=== PATIENT | female | born 1935 | race American Indian/Alaskan Native ===

== ENCOUNTER 2019-08-09 21:13 | Emergency (ER) | payer MEDICARE ==
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
[2019-08-09 22:10] LABS: Basophils % (Auto) 0.6 % (0.0-1.8); Eosinophils # (Auto) 0.1 K/mm3 (0.0-0.4); Eosinophils % (Auto) 3.2 % (0.0-4.3); Hematocrit 33.4 % (30.3-42.9); Hemoglobin 10.5 gm/dl (10.1-14.3); Lymphocytes # (Auto) 1.5 K/mm3 (1.2-5.4); Lymphocytes % (Auto) 31.9 % (13.4-35.0); Mean Corpuscular HGB Conc 31 % (30-34); Mean Corpuscular Volume 86 fl (79-97); Monocytes # (Auto) 0.5 K/mm3 (0.0-0.8); Monocytes % (Auto) 11.6 % (0.0-7.3); Platelet Count 185 K/mm3 (140-440); Red Blood Count 3.89 M/mm3 (3.65-5.03); Red Cell Distribution Width 15.4 % (13.2-15.2)
[2019-08-09 22:23] LABS: Alanine Aminotransferase 14 units/L (7-56); Albumin 4.1 g/dL (3.9-5)
[2019-08-09 22:24] LABS: Bilirubin,Direct < 0.2 mg/dL (0-0.2)
[2019-08-09 22:28] LABS: Calcium 9.4 mg/dL (8.4-10.2)
[2019-08-09 22:58] LABS: Bilirubin,Urine NEG (Negative); Blood,Urine NEG (Negative); Color,Urine Yellow (Yellow); Mucus,Urine FEW /HPF; Protein,Urine <15 mg/dL mg/dL (Negative); Urobilinogen,Urine < 2.0 mg/dL (<2.0)
[2019-08-09 23:06] LABS: Amphetamine Screen,Urine PRESUMPTIVE NEGATIVE; Benzodiazepines Screen,Urine PRESUMPTIVE NEGATIVE; Cannabinoid Screen,Urine PRESUMPTIVE NEGATIVE; Cocaine Screen,Urine PRESUMPTIVE NEGATIVE; Methadone Screen,Urine PRESUMPTIVE NEGATIVE; Opiate Screen,Urine PRESUMPTIVE NEGATIVE
[2019-08-10] MEDS ORDERED: HALOPERIDOL LACTATE 5 MG/1 ML INJ IM ONE (09:33)
[2019-08-10 12:52] VITALS: BP 142/92
== END 2019-08-10 12:51 ==
LOC: ED 21:13
DX: F28 Other psychotic disorder not due to a substance or known physiological condition (principal); F03.90 Unspecified dementia, unspecified severity, without behavioral disturbance, psychotic disturbance, mood disturbance, and anxiety
CPT/HCPCS: 36415; 80048; 80076; 80307; 81001; 85025; 96372; 99284; J1630; 80320; G0480

== ENCOUNTER 2019-08-10 10:51 | Inpatient (IN) | payer MEDICARE ==
[2019-08-10] MEDS ORDERED: ZIPRASIDONE MESYLATE 20 MG VIAL IM PRN (11:12)
--- NOTE | 2019-08-11 07:33 | Progress Note ---
Subjective Date of service: 08/11/19 Principal diagnosis: Dementia with Behavioral Disturbance Subjective Comment: I reviewed the patient's medical record and the patient's progress was discussed with the nursing staff. Georges Blake is an 83y/o female patient who was brought to the ER by her family for agitation and physical aggression toward others, according to the chart. During my interview this morning, the patient is lying in bed. She is dressed appropriately. She is awake. She is confused. The patient is a poor historian and unable to give any details about her history or much information about what's going on with her at present. She says she "doesn't feel so good" when asked. She says "my mother took me this morning to the hospital." When asked about thoughts of self-harm or not wanting to live, the patient replied, "no, I don't want to . I love my mother." PAST PSYCHIATRIC HISTORY: Unable to obtain information PAST MEDICAL HISTORY: Unable to obtain Family Psychiatric History: None reported or documented SOCIAL HISTORY Unable to obtain REVIEW OF SYSTEMS Unable to obtain MENTAL STATUS EXAMINATION General Appearance: Dressed appropriately Behavior: Calm, cooperative. Mood: "doesn't feel so good" Affect: Congruent with stated mood Speech: Normal tone and pace Thought Process: Impaired Thought Content: Suicidal Ideation: Denies Homicidal Ideation: Hallucinations: Delusions: None elicited Insight and Judgment: Limited Memory/Cognition: Impaired Assessment Dementia with Behavioral Disturbance Treatment Plan Patient will be admitted for inpatient psychiatric evaluation, medication adjustment and close monitoring The patient's behavior, mood, sleep and appetite will be closely monitored. Patient will be enrolled in individual and group therapeutic sessions and encouraged to attend. Patient will be provided with a safe and structured environment. Patient's physical health needs will be addressed by the Hospitalist. Hospitalist Consulted Labs including CBC, CMP, Lipid profile and Hemoglobin A1C ordered Social Assessment will be completed and the Load Tester will work with patient and family to ensure a suitable and safe disposition Medication adjustment will be made as clinically indicated Usual Wellness Orthodox/Preservation: [place] 3/fatty acids 2000mg po BID Risperidone 0.25mg po BID Trazodone 50mg po qhs Geodon 10mg IM q6h prn agitation - Certification Statement This is an acknowledgement statement that Georges Blake is an 83y/o female who requires inpatient psychiatric admission for treatment which could reasonably be expected to improve the patient's condition for Dementia with Behavioral Disturbance. Estimated period of time patient will need to remain in the hospital: [7] Plan for post-hospital care: [Outpatient] Medications and Allergies Allergies Allergy/AdvReac Type Severity Reaction Status Date / Time No Known Allergies Allergy Unverified 08/10/19 04:52 Home Medications Medication Instructions Recorded Confirmed Last Taken Type No Known Home Medications [No 08/11/19 08/11/19 Unknown History Reported Home Medications] Active Meds: Active Medications Trazodone HCl (Desyrel) 50 mg PO QHS JACQUELYN Ziprasidone (Geodon) 10 mg IM Q6H PRN PRN Reason: Agitation Results - Results Labs/Vitals: Laboratory Last Values POC Glucose 87 (70-105) 08/10/19 13:54 Last Vital Signs Temp 98.4 F 08/10/19 13:36 Pulse 87 08/10/19 13:36 Resp 20 08/10/19 13:36 BP 146/78 08/10/19 13:36 Pulse Ox 100 08/10/19 13:36
--- NOTE | 2019-08-11 08:34 | History and Physical Report ---
GP History & Physical - History of Present Illness Date of admission: 08/10/19 Date of Examination: 08/11/19 Reason for Admission: Danger to others, Unable to care for self History of Present Illness: I reviewed the patient's medical record and the patient's progress was discussed with the nursing staff. Jt Soria is an 83y/o female patient who was brought to the ER by her family for agitation and physical aggression toward others, according to the chart. During my interview this morning, the patient is lying in bed. She is dressed appropriately. She is awake. She is confused. The patient is a poor historian and unable to give any details about her history or much information about what's going on with her at present. She says she "doesn't feel so good" when asked. She says "my mother took me this morning to the hospital." When asked about thoughts of self-harm or not wanting to live, the patient replied, "no, I don't want to . I love my mother." PAST PSYCHIATRIC HISTORY: Unable to obtain information PAST MEDICAL HISTORY: Unable to obtain Family Psychiatric History: None reported or documented SOCIAL HISTORY Unable to obtain REVIEW OF SYSTEMS Unable to obtain MENTAL STATUS EXAMINATION General Appearance: Dressed appropriately Behavior: Calm, cooperative. Mood: "doesn't feel so good" Affect: Congruent with stated mood Speech: Normal tone and pace Thought Process: Impaired Thought Content: Suicidal Ideation: Denies Homicidal Ideation: Hallucinations: Delusions: None elicited Insight and Judgment: Limited Memory/Cognition: Impaired Assessment Dementia with Behavioral Disturbance Treatment Plan Patient will be admitted for inpatient psychiatric evaluation, medication adjustment and close monitoring The patient's behavior, mood, sleep and appetite will be closely monitored. Patient will be enrolled in individual and group therapeutic sessions and encouraged to attend. Patient will be provided with a safe and structured environment. Patient's physical health needs will be addressed by the Hospitalist. Hospitalist Consulted Labs including CBC, CMP, Lipid profile and Hemoglobin A1C ordered Social Assessment will be completed and the Boat Rental Clerk will work with patient and family to ensure a suitable and safe disposition Medication adjustment will be made as clinically indicated Usual Wellness Methodist/Preservation: [place] 3/fatty acids 2000mg po BID Risperidone 0.25mg po BID Trazodone 50mg po qhs Geodon 10mg IM q6h prn agitation - Certification Statement This is an acknowledgement statement that Jt Soria is an 83y/o female who requires inpatient psychiatric admission for treatment which could reasonably be expected to improve the patient's condition for Dementia with Behavioral Dis turbance. Estimated period of time patient will need to remain in the hospital: [7] Plan for post-hospital care: [Outpatient] Legal Status: Voluntary Reaction to Hospitalization: Accepting Medications and Allergies Allergies Allergy/AdvReac Type Severity Reaction Status Date / Time No Known Allergies Allergy Unverified 08/10/19 04:52 Home Medications Medication Instructions Recorded Confirmed Last Taken Type No Known Home Medications [No 08/11/19 08/11/19 Unknown History Reported Home Medications] Active Meds: Active Medications Fish Oil (Fish Oil) 2,000 mg PO BID JACQUELYN Risperidone (Risperdal) 0.25 mg PO BID JACQUELYN Trazodone HCl (Desyrel) 50 mg PO QHS JACQUELYN Ziprasidone (Geodon) 10 mg IM Q6H PRN PRN Reason: Agitation Results - Results Labs/Vitals: Laboratory Last Values POC Glucose 87 (70-105) 08/10/19 13:54 Last Vital Signs Temp 98.4 F 08/10/19 13:36 Pulse 87 08/10/19 13:36 Resp 20 08/10/19 13:36 BP 146/78 08/10/19 13:36 Pulse Ox 100 08/10/19 13:36 Physical Examination - Constitutional Vitals: Vital Signs Temp Pulse Resp BP Pulse Ox 98.4 F 87 20 146/78 100 08/10/19 13:36 08/10/19 13:36 08/10/19 13:36 08/10/19 13:36 08/10/19 13:36 Temperature -Last 24 Hours Temperature 98.4 F Mental Status Exam - Vital signs Last Vital Signs Temp 98.4 F 08/10/19 13:36 Pulse 87 08/10/19 13:36 Resp 20 08/10/19 13:36 BP 146/78 08/10/19 13:36 Pulse Ox 100 08/10/19 13:36 Physician Certification - Certification Statement Physician Certification Statement: This is an acknowledgement statement that JT SORIA is a 83 year old F who requires inpatient psychiatric admission for treatment which could reasonably be expected to improve the patient's condition for Estimated period of time patient will need to remain in the hospital: [ ] Plan for post-hospital care: [ ]
[2019-08-11] MEDS: risperiDONE 0.25 MG TAB PO SCH ×3 (10:10→21:49)
[2019-08-11] MEDS: OMEGA-3 FATTY ACIDS/FISH OIL 1 GRAM CAP PO SCH ×3 (10:10→21:48)
[2019-08-11] MEDS ORDERED: WATER FOR INJ Sterile (PF) 10 ML ONE (13:10)
[2019-08-11 13:58] LABS: Basophils % (Auto) 0.6 % (0.0-1.8); Eosinophils # (Auto) 0.2 K/mm3 (0.0-0.4); Eosinophils % (Auto) 2.8 % (0.0-4.3); Hematocrit 36.8 % (30.3-42.9); Hemoglobin 11.6 gm/dl (10.1-14.3); Lymphocytes # (Auto) 1.6 K/mm3 (1.2-5.4); Lymphocytes % (Auto) 29.9 % (13.4-35.0); Mean Corpuscular HGB Conc 32 % (30-34); Mean Corpuscular Volume 86 fl (79-97); Monocytes # (Auto) 0.4 K/mm3 (0.0-0.8); Monocytes % (Auto) 7.6 % (0.0-7.3); Platelet Count 222 K/mm3 (140-440); Red Blood Count 4.31 M/mm3 (3.65-5.03); Red Cell Distribution Width 15.4 % (13.2-15.2)
[2019-08-11 14:03] LABS: Albumin 4.2 g/dL (3.9-5); Calcium 9.7 mg/dL (8.4-10.2); Chol/HDL Ratio 2.56 %
--- NOTE | 2019-08-11 20:21 | Consultation ---
History of Present Illness - Reason for Consult Consult date: 08/11/19 Medical management Requesting physician: JOYCE AMBROSE - History of Present Illness Georges Blake is an 83y/o female patient who was brought to the ER by her family for agitation and physical aggression toward others, according to the chart. D She is dressed appropriately. She is awake. She is confused. The patient is a poor historian and unable to give any details about her history or much in formation about what's going on with her at present. She says she "doesn't feel so good" when asked. She says "my mother took me this morning to the hospital." When asked about thoughts of self-harm or not wanting to live, the patient replied, "no, I don't want to . I love my mother." Past History Past Medical History: CAD (On Plavix which she is not taking), hyperlipidemia Past Surgical History: Other (Could not obtain) Social history: other (Could not obtain) Family history: hypertension Medications and Allergies Allergies Allergy/AdvReac Type Severity Reaction Status Date / Time No Known Allergies Allergy Unverified 08/10/19 04:52 Home Medications Medication Instructions Recorded Confirmed Last Taken Type Atorvastatin 80 mg PO QHS 08/11/19 08/11/19 2 Days Ago History ~08/09/19 80 mg Centrum Silver Women Tablet 1 tab PO QAM 08/11/19 08/11/19 2 Days Ago History ~08/09/19 1 Clopidogrel 08/11/19 3 Months Ago History ~05/13/19 Sprycel 50 mg PO QAM 08/11/19 08/11/19 2 Days Ago History ~08/09/19 50 mg levETIRAcetam 500 mg PO QDAY 08/11/19 08/11/19 01/01/19 History 500 mg Active Meds: Active Medications Fish Oil (Fish Oil) 2,000 mg PO BID [facility] Last Admin: 08/11/19 12:38 Dose: Not Given Documented by: Risperidone (Risperdal) 0.25 mg PO BID JACQUELYN Last Admin: 08/11/19 12:39 Dose: Not Given Documented by: Trazodone HCl (Desyrel) 50 mg PO QHS JACQUELYN Ziprasidone (Geodon) 10 mg IM Q6H PRN PRN Reason: Agitation Last Admin: 08/11/19 13:25 Dose: 10 mg Documented by: Review of Systems All systems: negative Exam - Constitutional Vitals: Temp Pulse Resp BP Pulse Ox 98.2 F 88 18 106/70 98 08/10/19 20:20 08/10/19 20:20 08/10/19 20:20 08/10/19 20:20 08/10/19 20:20 General appearance: Present: no acute distress, well-nourished - EENT Eyes: Present: PERRL ENT: hearing intact, clear oral mucosa - Neck Neck: Present: supple, normal ROM - Respiratory Respiratory effort: normal Respiratory: bilateral: CTA - Cardiovascular Heart rate: 78 Rhythm: regular Heart Sounds: Present: S1 & S2. Absent: rub, click - Extremities Extremities: no ischemia, pulses intact, pulses symmetrical, No edema Peripheral Pulses: within normal limits - Abdominal General gastrointestinal: Present: soft, non-tender, non-distended, normal bowel sounds Female genitourinary: Present: normal - Rectal Rectal Exam: deferred - Integumentary Integumentary: Present: clear, warm, dry - Musculoskeletal Musculoskeletal: gait normal, strength equal bilaterally - Psychiatric Psychiatric: appropriate mood/affect, intact judgment & insight - Neurologic Neurologic: CNII-XII intact, moves all extremities - Allied Health Allied health notes reviewed: nursing, case management Results - Labs CBC & Chem 7: 08/11/19 13:17 08/11/19 13:17 Labs: Abnormal lab results 08/11/19 08/11/19 Range/Units 13:17 13:17 MCH 27 L (28-32) pg RDW 15.4 H (13.2-15.2) % [place] % (Auto) 7.6 H (0.0-7.3) % BUN 30 H (7-17) mg/dL Creatinine 1.6 H (0.7-1.2) mg/dL Glucose 107 H (65-100) mg/dL AST 53 H (5-40) units/L Cholesterol 226 H (50-199) mg/dL LDL Cholesterol Direct 135 H (50-130) mg/dL HDL Cholesterol 88 H (40-59) mg/dL Short CBC 08/11/19 Range/Units 13:17 WBC 5.4 (4.5-11.0) K/mm3 Hgb 11.6 (10.1-14.3) gm/dl Hct 36.8 (30.3-42.9) % Plt Count 222 (140-440) K/mm3 BMP 08/11/19 13:17 Sodium 144 Potassium 4.6 Chloride 104.5 Carbon Dioxide 27 BUN 30 H Creatinine 1.6 H Glucose 107 H Calcium 9.7 Liver Function 08/11/19 Range/Units 13:17 Total Bilirubin 0.20 (0.1-1.2) mg/dL AST 53 H (5-40) units/L ALT 18 (7-56) units/L Alkaline Phosphatase 102 (35-129) units/L Albumin 4.2 (3.9-5) g/dL Assessment and Plan - Patient Problems (1) Dementia with psychosis Current Visit: No Status: Acute Plan to address problem: Defer to psychiatry (2) CARMEN (acute kidney injury) Current Visit: Yes Status: Acute Plan to address problem: Increased oral fluid intake by mouth (3) Hyperlipidemia Current Visit: Yes Status: Chronic Qualifiers: Hyperlipidemia type: mixed hyperlipidemia Qualified Code(s): E78.2 - Mixed hyperlipidemia Plan to address problem: Continue statins (4) DVT prophylaxis Current Visit: Yes Status: Acute Plan to address problem: Lovenox 40 mg subcu daily
[2019-08-11] MEDS: traZODone 50 MG TAB PO SCH (21:48)
[2019-08-11] MEDS: ENOXAPARIN 30 MG/0.3 ML INJ SUB-Q SCH (21:49)
[2019-08-11] MEDS ORDERED: ENOXAPARIN 40 MG/0.4 ML INJ SUB-Q SCH (22:00)
--- NOTE | 2019-08-12 08:32 | Progress Note ---
Subjective Date of service: 08/12/19 Principal diagnosis: Dementia with Behavioral Disturbance Subjective Comment: I reviewed the patient's medical record and the patient's progress was discussed with the nursing staff. During my interview with the patient this morning, she is lying in bed. Awake. Her speech is low and barely audible. She is confused, and unable to give any detailed insight. She is calm. When asked how she was feeling, she says "I'm hurting." When asking about thoughts of self harm, the patient replied, "I have to get up." She asks "is my mother here." PAST PSYCHIATRIC HISTORY: Unable to obtain information PAST MEDICAL HISTORY: Unable to obtain Family Psychiatric History: None reported or documented SOCIAL HISTORY Unable to obtain REVIEW OF SYSTEMS Unable to obtain MENTAL STATUS EXAMINATION Unable to adequately obtain due to the patient's confusion Assessment Dementia with Behavioral Disturbance Treatment Plan Patient will be admitted for inpatient psychiatric evaluation, medication adjustment and close monitoring The patient's behavior, mood, sleep and appetite will be closely monitored. Patient will be enrolled in individual and group therapeutic sessions and encouraged to attend. Patient will be provided with a safe and structured environment. Patient's physical health needs will be addressed by the Hospitalist. Hospitalist Consulted Labs including CBC, CMP, Lipid profile and Hemoglobin A1C ordered Social Assessment will be completed and the Appeals Nurse will work with patient and family to ensure a suitable and safe disposition Medication adjustment will be made as clinically indicated Usual Wellness Protestant/Preservation: No changes made today Estimated period of time patient will need to remain in the hospital: [5] Plan for post-hospital care: [Outpatient] Medications and Allergies Allergies Allergy/AdvReac Type Severity Reaction Status Date / Time No Known Allergies Allergy Unverified 08/10/19 04:52 Home Medications Medication Instructions Recorded Confirmed Last Taken Type Atorvastatin 80 mg PO QHS 08/11/19 08/11/19 2 Days Ago History ~08/09/19 80 mg Centrum Silver Women Tablet 1 tab PO QAM 08/11/19 08/11/19 2 Days Ago History ~08/09/19 1 Clopidogrel 08/11/19 3 Months Ago History ~05/13/19 Sprycel 50 mg PO QAM 08/11/19 08/11/19 2 Days Ago History ~08/09/19 50 mg levETIRAcetam 500 mg PO QDAY 08/11/19 08/11/19 01/01/19 History 500 mg Active Meds: Active Medications Enoxaparin Sodium (Enoxaparin) 30 mg SUB-Q QDAY@2200 [facility] Last Admin: 08/11/19 21:49 Dose: Not Given Documented by: Fish Oil (Fish Oil) 2,000 mg PO BID [facility] Last Admin: 08/11/19 21:48 Dose: 2,000 mg Documented by: Risperidone (Risperdal) 0.25 mg PO BID [facility] Last Admin: 08/11/19 21:49 Dose: 0.25 mg Documented by: Trazodone HCl (Desyrel) 50 mg PO QHS [facility] Last Admin: 08/11/19 21:48 Dose: 50 mg Documented by: Ziprasidone (Geodon) 10 mg IM Q6H PRN PRN Reason: Agitation Last Admin: 08/11/19 13:25 Dose: 10 mg Documented by: Results - Results Labs/Vitals: Laboratory Last Values WBC 5.4 K/mm3 (4.5-11.0) 08/11/19 13:17 RBC 4.31 M/mm3 (3.65-5.03) 08/11/19 13:17 Hgb 11.6 gm/dl (10.1-14.3) 08/11/19 13:17 Hct 36.8 % (30.3-42.9) 08/11/19 13:17 MCV 86 fl (79-97) 08/11/19 13:17 MCH 27 pg (28-32) L 08/11/19 13:17 MCHC 32 % (30-34) 08/11/19 13:17 RDW 15.4 % (13.2-15.2) H 08/11/19 13:17 Plt Count 222 K/mm3 (140-440) 08/11/19 13:17 Lymph % (Auto) 29.9 % (13.4-35.0) 08/11/19 13:17 [place] % (Auto) 7.6 % (0.0-7.3) H 08/11/19 13:17 Eos % (Auto) 2.8 % (0.0-4.3) 08/11/19 13:17 Baso % (Auto) 0.6 % (0.0-1.8) 08/11/19 13:17 Lymph # 1.6 K/mm3 (1.2-5.4) 08/11/19 13:17 [place] # 0.4 K/mm3 (0.0-0.8) 08/11/19 13:17 Eos # 0.2 K/mm3 (0.0-0.4) 08/11/19 13:17 Baso # 0.0 K/mm3 (0.0-0.1) 08/11/19 13:17 Seg Neutrophils % 59.1 % (40.0-70.0) 08/11/19 13:17 Seg Neutrophils # 3.2 K/mm3 (1.8-7.7) 08/11/19 13:17 Sodium 144 mmol/L (137-145) 08/11/19 13:17 Potassium 4.6 mmol/L (3.6-5.0) 08/11/19 13:17 Chloride 104.5 mmol/L (98-107) 08/11/19 13:17 Carbon Dioxide 27 mmol/L (22-30) 08/11/19 13:17 Anion Gap 17 mmol/L 08/11/19 13:17 BUN 30 mg/dL (7-17) H 08/11/19 13:17 Creatinine 1.6 mg/dL (0.7-1.2) H 08/11/19 13:17 Estimated GFR 37 ml/min 08/11/19 13:17 BUN/Creatinine Ratio 19 % 08/11/19 13:17 Glucose 107 mg/dL (65-100) H 08/11/19 13:17 POC Glucose 87 (70-105) 08/10/19 13:54 Hemoglobin A1c 4.7 % (4-6) 08/11/19 13:17 Calcium 9.7 mg/dL (8.4-10.2) 08/11/19 13:17 Total Bilirubin 0.20 mg/dL (0.1-1.2) 08/11/19 13:17 AST 53 units/L (5-40) H 08/11/19 13:17 ALT 18 units/L (7-56) 08/11/19 13:17 Alkaline Phosphatase 102 units/L (35-129) 08/11/19 13:17 Total Protein 7.7 g/dL (6.3-8.2) 08/11/19 13:17 Albumin 4.2 g/dL (3.9-5) 08/11/19 13:17 Albumin/Globulin Ratio 1.2 % 08/11/19 13:17 Triglycerides 60 mg/dL (2-149) 08/11/19 13:17 Cholesterol 226 mg/dL (50-199) H 08/11/19 13:17 LDL Cholesterol Direct 135 mg/dL (50-130) H 08/11/19 13:17 HDL Cholesterol 88 mg/dL (40-59) H 08/11/19 13:17 Cholesterol/HDL Ratio 2.56 % 08/11/19 13:17 TSH 2.150 mlU/mL (0.270-4.200) 08/11/19 13:17 Coronavirus (PCR) Negative (Negative) 08/10/19 Unknown Last Vital Signs Temp 98.0 F 08/11/19 22:00 Pulse 76 08/11/19 22:00 Resp 16 08/11/19 22:00 BP 142/60 08/11/19 22:00 Pulse Ox 100 08/11/19 22:00
[2019-08-12] MEDS: OMEGA-3 FATTY ACIDS/FISH OIL 1 GRAM CAP PO SCH ×2 (12:43→21:33)
[2019-08-12] MEDS: risperiDONE 0.25 MG TAB PO SCH ×2 (12:44→21:33)
[2019-08-12] MEDS: traZODone 50 MG TAB PO SCH (21:33)
[2019-08-12] MEDS: ENOXAPARIN 30 MG/0.3 ML INJ SUB-Q SCH (21:34)
--- NOTE | 2019-08-13 09:15 | Progress Note ---
Subjective Date of service: 08/13/19 Principal diagnosis: Dementia with Behavioral Disturbance Subjective Comment: I reviewed the patient's medical record and the patient's progress was discussed with the nursing staff. The nurse note states the patient referred to two ruben bears in her room as her sons, stated that she will be calm so that nobody will take away her sons from her. The nurse note also states the patient refuses her medications and at times agitated. During my interview with the patient this morning, she is sitting in the dayroom. She is dressed appropriately. Her speech is low and barely audible. She is confused, and states to me "I'm eating with my children." She then asked me "have you seen them." Reason for continued inpatient treatment: The patient is agitated at times, and at times with episodes of delusions. She is also not medication complaint. REVIEW OF SYSTEMS Unable to obtain MENTAL STATUS EXAMINATION Unable to adequately obtain due to the patient's confusion Assessment Dementia with Behavioral Disturbance Treatment Plan Patient will be admitted for inpatient psychiatric evaluation, medication adjustment and close monitoring The patient's behavior, mood, sleep and appetite will be closely monitored. Patient will be enrolled in individual and group therapeutic sessions and encouraged to attend. Patient will be provided with a safe and structured environment. Patient's physical health needs will be addressed by the Hospitalist. Hospitalist Consulted Labs including CBC, CMP, Lipid profile and Hemoglobin A1C ordered Social Assessment will be completed and the Shoe Repairer will work with patient and family to ensure a suitable and safe disposition Medication adjustment will be made as clinically indicated Usual Wellness Mandaen/Preservation: Increased Risperidone to 0.5mg po BID Estimated period of time patient will need to remain in the hospital: [5] Plan for post-hospital care: [Outpatient] Medications and Allergies Allergies Allergy/AdvReac Type Severity Reaction Status Date / Time No Known Allergies Allergy Unverified 08/10/19 04:52 Home Medications Medication Instructions Recorded Confirmed Last Taken Type Atorvastatin 80 mg PO QHS 08/11/19 08/11/19 2 Days Ago History ~08/09/19 80 mg Centrum Silver Women Tablet 1 tab PO QAM 08/11/19 08/11/19 2 Days Ago History ~08/09/19 1 Clopidogrel 75 mg PO DAILY 08/11/19 08/13/19 Unknown History Sprycel 50 mg PO QAM 08/11/19 08/11/19 2 Days Ago History ~08/09/19 50 mg levETIRAcetam 500 mg PO QDAY 08/11/19 08/11/19 01/01/19 History 500 mg Active Meds: Active Medications Enoxaparin Sodium (Enoxaparin) 30 mg SUB-Q QDAY@2200 [facility] Last Admin: 08/12/19 21:34 Dose: 30 mg Documented by: Fish Oil (Fish Oil) 2,000 mg PO BID [facility] Last Admin: 08/12/19 21:33 Dose: 2,000 mg Documented by: Risperidone (Risperdal) 0.25 mg PO BID [facility] Last Admin: 08/12/19 21:33 Dose: 0.25 mg Documented by: Trazodone HCl (Desyrel) 50 mg PO QHS [facility] Last Admin: 08/12/19 21:33 Dose: 50 mg Documented by: Ziprasidone (Geodon) 10 mg IM Q6H PRN PRN Reason: Agitation Last Admin: 08/11/19 13:25 Dose: 10 mg Documented by: Results - Results Labs/Vitals: Laboratory Last Values WBC 5.4 K/mm3 (4.5-11.0) 08/11/19 13:17 RBC 4.31 M/mm3 (3.65-5.03) 08/11/19 13:17 Hgb 11.6 gm/dl (10.1-14.3) 08/11/19 13:17 Hct 36.8 % (30.3-42.9) 08/11/19 13:17 MCV 86 fl (79-97) 08/11/19 13:17 MCH 27 pg (28-32) L 08/11/19 13:17 MCHC 32 % (30-34) 08/11/19 13:17 RDW 15.4 % (13.2-15.2) H 08/11/19 13:17 Plt Count 222 K/mm3 (140-440) 08/11/19 13:17 Lymph % (Auto) 29.9 % (13.4-35.0) 08/11/19 13:17 [place] % (Auto) 7.6 % (0.0-7.3) H 08/11/19 13:17 Eos % (Auto) 2.8 % (0.0-4.3) 08/11/19 13:17 Baso % (Auto) 0.6 % (0.0-1.8) 08/11/19 13:17 Lymph # 1.6 K/mm3 (1.2-5.4) 08/11/19 13:17 [place] # 0.4 K/mm3 (0.0-0.8) 08/11/19 13:17 Eos # 0.2 K/mm3 (0.0-0.4) 08/11/19 13:17 Baso # 0.0 K/mm3 (0.0-0.1) 08/11/19 13:17 Seg Neutrophils % 59.1 % (40.0-70.0) 08/11/19 13:17 Seg Neutrophils # 3.2 K/mm3 (1.8-7.7) 08/11/19 13:17 Sodium 144 mmol/L (137-145) 08/11/19 13:17 Potassium 4.6 mmol/L (3.6-5.0) 08/11/19 13:17 Chloride 104.5 mmol/L (98-107) 08/11/19 13:17 Carbon Dioxide 27 mmol/L (22-30) 08/11/19 13:17 Anion Gap 17 mmol/L 08/11/19 13:17 BUN 30 mg/dL (7-17) H 08/11/19 13:17 Creatinine 1.6 mg/dL (0.7-1.2) H 08/11/19 13:17 Estimated GFR 37 ml/min 08/11/19 13:17 BUN/Creatinine Ratio 19 % 08/11/19 13:17 Glucose 107 mg/dL (65-100) H 08/11/19 13:17 POC Glucose 87 (70-105) 08/10/19 13:54 Hemoglobin A1c 4.7 % (4-6) 08/11/19 13:17 Calcium 9.7 mg/dL (8.4-10.2) 08/11/19 13:17 Total Bilirubin 0.20 mg/dL (0.1-1.2) 08/11/19 13:17 AST 53 units/L (5-40) H 08/11/19 13:17 ALT 18 units/L (7-56) 08/11/19 13:17 Alkaline Phosphatase 102 units/L (35-129) 08/11/19 13:17 Total Protein 7.7 g/dL (6.3-8.2) 08/11/19 13:17 Albumin 4.2 g/dL (3.9-5) 08/11/19 13:17 Albumin/Globulin Ratio 1.2 % 08/11/19 13:17 Triglycerides 60 mg/dL (2-149) 08/11/19 13:17 Cholesterol 226 mg/dL (50-199) H 08/11/19 13:17 LDL Cholesterol Direct 135 mg/dL (50-130) H 08/11/19 13:17 HDL Cholesterol 88 mg/dL (40-59) H 08/11/19 13:17 Cholesterol/HDL Ratio 2.56 % 08/11/19 13:17 TSH 2.150 mlU/mL (0.270-4.200) 08/11/19 13:17 Coronavirus (PCR) Negative (Negative) 08/10/19 Unknown Last Vital Signs Temp 97.4 F L 08/13/19 07:52 Pulse 80 08/13/19 07:52 Resp 18 08/13/19 07:52 BP 138/76 08/13/19 07:52 Pulse Ox 99 08/13/19 07:52
[2019-08-13] MEDS: risperiDONE 0.25 MG TAB PO SCH ×2 (10:48→22:06)
[2019-08-13] MEDS: OMEGA-3 FATTY ACIDS/FISH OIL 1 GRAM CAP PO SCH ×2 (10:48→22:20)
[2019-08-13] MEDS: traZODone 50 MG TAB PO SCH (22:05)
[2019-08-13] MEDS: ENOXAPARIN 30 MG/0.3 ML INJ SUB-Q SCH (22:05)
--- NOTE | 2019-08-14 07:41 | Progress Note ---
Subjective Date of service: 08/14/19 Principal diagnosis: Dementia with Behavioral Disturbance Subjective Comment: I reviewed the patient's medical record and the patient's progress was discussed with the nursing staff. During my interview with the patient this morning, she is awake and confused. She is dressed appropriately. She makes fair eye contact. The patient greets me with "good morning." She then says "I'm getting up fast." She starts pointing down the hallway and then opens both of her hands as if she thinks something is on them. Reason for continued inpatient treatment: The patient is agitated at times, and has episodes of hallucinations. She is also not medication compliant. REVIEW OF SYSTEMS Unable to obtain MENTAL STATUS EXAMINATION Unable to adequately obtain due to the patient's confusion Assessment Dementia with Behavioral Disturbance Treatment Plan Patient will be admitted for inpatient psychiatric evaluation, medication adjustment and close monitoring The patient's behavior, mood, sleep and appetite will be closely monitored. Patient will be enrolled in individual and group therapeutic sessions and encouraged to attend. Patient will be provided with a safe and structured environment. Patient's physical health needs will be addressed by the Hospitalist. Hospitalist Consulted Labs including CBC, CMP, Lipid profile and Hemoglobin A1C ordered Social Assessment will be completed and the Rn Complex Care will work with patient and family to ensure a suitable and safe disposition Medication adjustment will be made as clinically indicated Usual Wellness Uatsdin/Preservation: Increased Risperidone to 0.5mg po BID yesterday No changes made today Estimated period of time patient will need to remain in the hospital: [4] Plan for post-hospital care: [Outpatient] Medications and Allergies Allergies Allergy/AdvReac Type Severity Reaction Status Date / Time No Known Allergies Allergy Unverified 08/10/19 04:52 Home Medications Medication Instructions Recorded Confirmed Last Taken Type Atorvastatin 80 mg PO QHS 08/11/19 08/11/19 2 Days Ago History ~08/09/19 80 mg Centrum Silver Women Tablet 1 tab PO QAM 08/11/19 08/11/19 2 Days Ago History ~08/09/19 1 Clopidogrel 75 mg PO DAILY 08/11/19 08/13/19 Unknown History Sprycel 50 mg PO QAM 08/11/19 08/11/19 2 Days Ago History ~08/09/19 50 mg levETIRAcetam 500 mg PO QDAY 08/11/19 08/11/19 01/01/19 History 500 mg Active Meds: Active Medications Enoxaparin Sodium (Enoxaparin) 30 mg SUB-Q QDAY@2200 [facility] Last Admin: 08/13/19 22:05 Dose: 30 mg Documented by: Fish Oil (Fish Oil) 2,000 mg PO BID [facility] Last Admin: 08/13/19 22:20 Dose: 2,000 mg Documented by: Risperidone (Risperdal) 0.5 mg PO BID [facility] Last Admin: 08/13/19 22:06 Dose: 0.5 mg Documented by: Trazodone HCl (Desyrel) 50 mg PO QHS [facility] Last Admin: 08/13/19 22:05 Dose: 50 mg Documented by: Ziprasidone (Geodon) 10 mg IM Q6H PRN PRN Reason: Agitation Last Admin: 08/11/19 13:25 Dose: 10 mg Documented by: Results - Results Labs/Vitals: Laboratory Last Values WBC 5.4 K/mm3 (4.5-11.0) 08/11/19 13:17 RBC 4.31 M/mm3 (3.65-5.03) 08/11/19 13:17 Hgb 11.6 gm/dl (10.1-14.3) 08/11/19 13:17 Hct 36.8 % (30.3-42.9) 08/11/19 13:17 MCV 86 fl (79-97) 08/11/19 13:17 MCH 27 pg (28-32) L 08/11/19 13:17 MCHC 32 % (30-34) 08/11/19 13:17 RDW 15.4 % (13.2-15.2) H 08/11/19 13:17 Plt Count 222 K/mm3 (140-440) 08/11/19 13:17 Lymph % (Auto) 29.9 % (13.4-35.0) 08/11/19 13:17 [place] % (Auto) 7.6 % (0.0-7.3) H 08/11/19 13:17 Eos % (Auto) 2.8 % (0.0-4.3) 08/11/19 13:17 Baso % (Auto) 0.6 % (0.0-1.8) 08/11/19 13:17 Lymph # 1.6 K/mm3 (1.2-5.4) 08/11/19 13:17 [place] # 0.4 K/mm3 (0.0-0.8) 08/11/19 13:17 Eos # 0.2 K/mm3 (0.0-0.4) 08/11/19 13:17 Baso # 0.0 K/mm3 (0.0-0.1) 08/11/19 13:17 Seg Neutrophils % 59.1 % (40.0-70.0) 08/11/19 13:17 Seg Neutrophils # 3.2 K/mm3 (1.8-7.7) 08/11/19 13:17 Sodium 144 mmol/L (137-145) 08/11/19 13:17 Potassium 4.6 mmol/L (3.6-5.0) 08/11/19 13:17 Chloride 104.5 mmol/L (98-107) 08/11/19 13:17 Carbon Dioxide 27 mmol/L (22-30) 08/11/19 13:17 Anion Gap 17 mmol/L 08/11/19 13:17 BUN 30 mg/dL (7-17) H 08/11/19 13:17 Creatinine 1.6 mg/dL (0.7-1.2) H 08/11/19 13:17 Estimated GFR 37 ml/min 08/11/19 13:17 BUN/Creatinine Ratio 19 % 08/11/19 13:17 Glucose 107 mg/dL (65-100) H 08/11/19 13:17 POC Glucose 87 (70-105) 08/10/19 13:54 Hemoglobin A1c 4.7 % (4-6) 08/11/19 13:17 Calcium 9.7 mg/dL (8.4-10.2) 08/11/19 13:17 Total Bilirubin 0.20 mg/dL (0.1-1.2) 08/11/19 13:17 AST 53 units/L (5-40) H 08/11/19 13:17 ALT 18 units/L (7-56) 08/11/19 13:17 Alkaline Phosphatase 102 units/L (35-129) 08/11/19 13:17 Total Protein 7.7 g/dL (6.3-8.2) 08/11/19 13:17 Albumin 4.2 g/dL (3.9-5) 08/11/19 13:17 Albumin/Globulin Ratio 1.2 % 08/11/19 13:17 Triglycerides 60 mg/dL (2-149) 08/11/19 13:17 Cholesterol 226 mg/dL (50-199) H 08/11/19 13:17 LDL Cholesterol Direct 135 mg/dL (50-130) H 08/11/19 13:17 HDL Cholesterol 88 mg/dL (40-59) H 08/11/19 13:17 Cholesterol/HDL Ratio 2.56 % 08/11/19 13:17 TSH 2.150 mlU/mL (0.270-4.200) 08/11/19 13:17 Coronavirus (PCR) Negative (Negative) 08/10/19 Unknown Last Vital Signs Temp 97.4 F L 08/13/19 07:52 Pulse 84 08/13/19 19:56 Resp 18 08/13/19 07:52 BP 129/63 08/13/19 19:56 Pulse Ox 100 08/13/19 19:56
[2019-08-14] MEDS: risperiDONE 0.25 MG TAB PO SCH ×2 (09:16→21:42)
[2019-08-14] MEDS: OMEGA-3 FATTY ACIDS/FISH OIL 1 GRAM CAP PO SCH ×2 (09:16→21:41)
[2019-08-14] MEDS: ENOXAPARIN 30 MG/0.3 ML INJ SUB-Q SCH (21:40)
[2019-08-14] MEDS: traZODone 50 MG TAB PO SCH (21:55)
--- NOTE | 2019-08-15 08:30 | Progress Note ---
Subjective Date of service: 08/15/19 Principal diagnosis: Dementia with Behavioral Disturbance Subjective Comment: I reviewed the patient's medical record and the patient's progress was discussed with the nursing staff. During my interview with the patient this morning, she is awake and confused. She is dressed appropriately. She makes fair eye contact. The patient says to me, "I want to go home. I don't want to be here." She says, "I'm so nervous and I don't know what to do about it." When asked about SI/HI, the patient kept repeating, "I want to go home. I want to go home." She says, "my children are looking for me." Reason for continued inpatient treatment: The patient at times is delusional, she is anxious and unable to care for herself. Reason for continued inpatient treatment: REVIEW OF SYSTEMS Unable to obtain MENTAL STATUS EXAMINATION Unable to adequately obtain due to the patient's confusion Assessment Dementia with Behavioral Disturbance Treatment Plan Patient will be admitted for inpatient psychiatric evaluation, medication adjustment and close monitoring The patient's behavior, mood, sleep and appetite will be closely monitored. Patient will be enrolled in individual and group therapeutic sessions and encouraged to attend. Patient will be provided with a safe and structured environment. Patient's physical health needs will be addressed by the Hospitalist. Hospitalist Consulted Labs including CBC, CMP, Lipid profile and Hemoglobin A1C ordered Social Assessment will be completed and the Yarn Spinner will work with patient and family to ensure a suitable and safe disposition Medication adjustment will be made as clinically indicated Usual Wellness Yazdanism/Preservation: Risperidone to 1mg po BID yesterday to decrease delusions and improve mood Started Buspar 5mg po daily to decrease anxiety Estimated period of time patient will need to remain in the hospital: [4] Plan for post-hospital care: [Outpatient] Medications and Allergies Allergies Allergy/AdvReac Type Severity Reaction Status Date / Time No Known Allergies Allergy Unverified 08/10/19 04:52 Home Medications Medication Instructions Recorded Confirmed Last Taken Type Atorvastatin 80 mg PO QHS 08/11/19 08/11/19 2 Days Ago History ~08/09/19 80 mg Centrum Silver Women Tablet 1 tab PO QAM 08/11/19 08/11/19 2 Days Ago History ~08/09/19 1 Clopidogrel 75 mg PO DAILY 08/11/19 08/13/19 Unknown History Sprycel 50 mg PO QAM 08/11/19 08/11/19 2 Days Ago History ~08/09/19 50 mg levETIRAcetam 500 mg PO QDAY 08/11/19 08/11/19 01/01/19 History 500 mg Active Meds: Active Medications Enoxaparin Sodium (Enoxaparin) 30 mg SUB-Q QDAY@2200 [facility] Last Admin: 08/14/19 21:40 Dose: 30 mg Documented by: Fish Oil (Fish Oil) 2,000 mg PO BID [facility] Last Admin: 08/14/19 21:41 Dose: 2,000 mg Documented by: Risperidone (Risperdal) 0.5 mg PO BID [facility] Last Admin: 08/14/19 21:42 Dose: 0.5 mg Documented by: Trazodone HCl (Desyrel) 50 mg PO QHS [facility] Last Admin: 08/14/19 21:55 Dose: 50 mg Documented by: Ziprasidone (Geodon) 10 mg IM Q6H PRN PRN Reason: Agitation Last Admin: 08/11/19 13:25 Dose: 10 mg Documented by: Results - Results Labs/Vitals: Laboratory Last Values WBC 5.4 K/mm3 (4.5-11.0) 08/11/19 13:17 RBC 4.31 M/mm3 (3.65-5.03) 08/11/19 13:17 Hgb 11.6 gm/dl (10.1-14.3) 08/11/19 13:17 Hct 36.8 % (30.3-42.9) 08/11/19 13:17 MCV 86 fl (79-97) 08/11/19 13:17 MCH 27 pg (28-32) L 08/11/19 13:17 MCHC 32 % (30-34) 08/11/19 13:17 RDW 15.4 % (13.2-15.2) H 08/11/19 13:17 Plt Count 222 K/mm3 (140-440) 08/11/19 13:17 Lymph % (Auto) 29.9 % (13.4-35.0) 08/11/19 13:17 [place] % (Auto) 7.6 % (0.0-7.3) H 08/11/19 13:17 Eos % (Auto) 2.8 % (0.0-4.3) 08/11/19 13:17 Baso % (Auto) 0.6 % (0.0-1.8) 08/11/19 13:17 Lymph # 1.6 K/mm3 (1.2-5.4) 08/11/19 13:17 [place] # 0.4 K/mm3 (0.0-0.8) 08/11/19 13:17 Eos # 0.2 K/mm3 (0.0-0.4) 08/11/19 13:17 Baso # 0.0 K/mm3 (0.0-0.1) 08/11/19 13:17 Seg Neutrophils % 59.1 % (40.0-70.0) 08/11/19 13:17 Seg Neutrophils # 3.2 K/mm3 (1.8-7.7) 08/11/19 13:17 Sodium 144 mmol/L (137-145) 08/11/19 13:17 Potassium 4.6 mmol/L (3.6-5.0) 08/11/19 13:17 Chloride 104.5 mmol/L (98-107) 08/11/19 13:17 Carbon Dioxide 27 mmol/L (22-30) 08/11/19 13:17 Anion Gap 17 mmol/L 08/11/19 13:17 BUN 30 mg/dL (7-17) H 08/11/19 13:17 Creatinine 1.6 mg/dL (0.7-1.2) H 08/11/19 13:17 Estimated GFR 37 ml/min 08/11/19 13:17 BUN/Creatinine Ratio 19 % 08/11/19 13:17 Glucose 107 mg/dL (65-100) H 08/11/19 13:17 POC Glucose 87 (70-105) 08/10/19 13:54 Hemoglobin A1c 4.7 % (4-6) 08/11/19 13:17 Calcium 9.7 mg/dL (8.4-10.2) 08/11/19 13:17 Total Bilirubin 0.20 mg/dL (0.1-1.2) 08/11/19 13:17 AST 53 units/L (5-40) H 08/11/19 13:17 ALT 18 units/L (7-56) 08/11/19 13:17 Alkaline Phosphatase 102 units/L (35-129) 08/11/19 13:17 Total Protein 7.7 g/dL (6.3-8.2) 08/11/19 13:17 Albumin 4.2 g/dL (3.9-5) 08/11/19 13:17 Albumin/Globulin Ratio 1.2 % 08/11/19 13:17 Triglycerides 60 mg/dL (2-149) 08/11/19 13:17 Cholesterol 226 mg/dL (50-199) H 08/11/19 13:17 LDL Cholesterol Direct 135 mg/dL (50-130) H 08/11/19 13:17 HDL Cholesterol 88 mg/dL (40-59) H 08/11/19 13:17 Cholesterol/HDL Ratio 2.56 % 08/11/19 13:17 TSH 2.150 mlU/mL (0.270-4.200) 08/11/19 13:17 Coronavirus (PCR) Negative (Negative) 08/10/19 Unknown Last Vital Signs Temp 98.1 F 08/14/19 08:58 Pulse 76 08/14/19 08:58 Resp 18 08/14/19 08:58 BP 102/64 08/14/19 08:58 Pulse Ox 99 08/14/19 08:58
[2019-08-15] MEDS ORDERED: risperiDONE 0.25 MG TAB PO SCH (08:58)
[2019-08-15] MEDS ORDERED: busPIRone 5 MG TAB PO SCH (10:00)
[2019-08-15] MEDS: risperiDONE 1 MG TAB PO SCH ×2 (10:53→21:40)
[2019-08-15] MEDS: OMEGA-3 FATTY ACIDS/FISH OIL 1 GRAM CAP PO SCH ×2 (10:53→21:40)
[2019-08-15] MEDS: traZODone 50 MG TAB PO SCH (21:40)
[2019-08-15] MEDS: ENOXAPARIN 30 MG/0.3 ML INJ SUB-Q SCH (22:24)
--- NOTE | 2019-08-16 08:30 | Progress Note ---
Subjective Date of service: 08/16/19 Principal diagnosis: Dementia with Behavioral Disturbance Subjective Comment: I reviewed the patient's medical record and the patient's progress was discussed with the nursing staff. The nurse note states the patient is observed on the unit pleasantly confused and delusional. During my interview with the patient this morning, she is asleep, but easily arouses. She is dressed appropriately. She is confused. She makes fair eye contact. She describes her mood as "pretty good." She says she "didn't sleep good" when asked. She says, "I'm nervous. I'm just nervous." She asks, "where are my children?" The patient denies SI/HI. The patient was reoriented, she then states, "I am." Reason for continued inpatient treatment: The patient continues to be delusional, anxious, and unable to care for herself. Reason for continued inpatient treatment: REVIEW OF SYSTEMS Unable to obtain MENTAL STATUS EXAMINATION Unable to adequately obtain due to the patient's confusion Assessment Dementia with Behavioral Disturbance Treatment Plan Patient will be admitted for inpatient psychiatric evaluation, medication adj ustment and close monitoring The patient's behavior, mood, sleep and appetite will be closely monitored. Patient will be enrolled in individual and group therapeutic sessions and encouraged to attend. Patient will be provided with a safe and structured environment. Patient's physical health needs will be addressed by the Hospitalist. Hospitalist Consulted Labs including CBC, CMP, Lipid profile and Hemoglobin A1C ordered Social Assessment will be completed and the [place] Supervisor will work with patient and family to ensure a suitable and safe disposition Medication adjustment will be made as clinically indicated Usual Wellness Christianity/Preservation: Risperidone to 1mg po BID yesterday to decrease delusions and improve mood yesterday Increased Buspar 5mg po BID to decrease anxiety Estimated period of time patient will need to remain in the hospital: [4] Plan for post-hospital care: [Outpatient] Medications and Allergies Allergies Allergy/AdvReac Type Severity Reaction Status Date / Time No Known Allergies Allergy Unverified 08/10/19 04:52 Home Medications Medication Instructions Recorded Confirmed Last Taken Type Atorvastatin 80 mg PO QHS 08/11/19 08/11/19 2 Days Ago History ~08/09/19 80 mg Centrum Silver Women Tablet 1 tab PO QAM 08/11/19 08/11/19 2 Days Ago History ~08/09/19 1 Clopidogrel 75 mg PO DAILY 08/11/19 08/13/19 Unknown History Sprycel 50 mg PO QAM 08/11/19 08/11/19 2 Days Ago History ~08/09/19 50 mg levETIRAcetam 500 mg PO QDAY 08/11/19 08/11/19 01/01/19 History 500 mg Active Meds: Active Medications Buspirone HCl (Buspar) 5 mg PO DAILY [facility] Last Admin: 08/15/19 10:53 Dose: 5 mg Documented by: Fish Oil (Fish Oil) 2,000 mg PO BID [facility] Last Admin: 08/15/19 21:40 Dose: 2,000 mg Documented by: Risperidone (Risperdal) 1 mg PO BID [facility] Last Admin: 08/15/19 21:40 Dose: 1 mg Documented by: Trazodone HCl (Desyrel) 50 mg PO QHS [facility] Last Admin: 08/15/19 21:40 Dose: 50 mg Documented by: Ziprasidone (Geodon) 10 mg IM Q6H PRN PRN Reason: Agitation Last Admin: 08/11/19 13:25 Dose: 10 mg Documented by: Results - Results Labs/Vitals: Laboratory Last Values WBC 5.4 K/mm3 (4.5-11.0) 08/11/19 13:17 RBC 4.31 M/mm3 (3.65-5.03) 08/11/19 13:17 Hgb 11.6 gm/dl (10.1-14.3) 08/11/19 13:17 Hct 36.8 % (30.3-42.9) 08/11/19 13:17 MCV 86 fl (79-97) 08/11/19 13:17 MCH 27 pg (28-32) L 08/11/19 13:17 MCHC 32 % (30-34) 08/11/19 13:17 RDW 15.4 % (13.2-15.2) H 08/11/19 13:17 Plt Count 222 K/mm3 (140-440) 08/11/19 13:17 Lymph % (Auto) 29.9 % (13.4-35.0) 08/11/19 13:17 [place] % (Auto) 7.6 % (0.0-7.3) H 08/11/19 13:17 Eos % (Auto) 2.8 % (0.0-4.3) 08/11/19 13:17 Baso % (Auto) 0.6 % (0.0-1.8) 08/11/19 13:17 Lymph # 1.6 K/mm3 (1.2-5.4) 08/11/19 13:17 [place] # 0.4 K/mm3 (0.0-0.8) 08/11/19 13:17 Eos # 0.2 K/mm3 (0.0-0.4) 08/11/19 13:17 Baso # 0.0 K/mm3 (0.0-0.1) 08/11/19 13:17 Seg Neutrophils % 59.1 % (40.0-70.0) 08/11/19 13:17 Seg Neutrophils # 3.2 K/mm3 (1.8-7.7) 08/11/19 13:17 Sodium 144 mmol/L (137-145) 08/11/19 13:17 Potassium 4.6 mmol/L (3.6-5.0) 08/11/19 13:17 Chloride 104.5 mmol/L (98-107) 08/11/19 13:17 Carbon Dioxide 27 mmol/L (22-30) 08/11/19 13:17 Anion Gap 17 mmol/L 08/11/19 13:17 BUN 30 mg/dL (7-17) H 08/11/19 13:17 Creatinine 1.6 mg/dL (0.7-1.2) H 08/11/19 13:17 Estimated GFR 37 ml/min 08/11/19 13:17 BUN/Creatinine Ratio 19 % 08/11/19 13:17 Glucose 107 mg/dL (65-100) H 08/11/19 13:17 POC Glucose 87 (70-105) 08/10/19 13:54 Hemoglobin A1c 4.7 % (4-6) 08/11/19 13:17 Calcium 9.7 mg/dL (8.4-10.2) 08/11/19 13:17 Total Bilirubin 0.20 mg/dL (0.1-1.2) 08/11/19 13:17 AST 53 units/L (5-40) H 08/11/19 13:17 ALT 18 units/L (7-56) 08/11/19 13:17 Alkaline Phosphatase 102 units/L (35-129) 08/11/19 13:17 Total Protein 7.7 g/dL (6.3-8.2) 08/11/19 13:17 Albumin 4.2 g/dL (3.9-5) 08/11/19 13:17 Albumin/Globulin Ratio 1.2 % 08/11/19 13:17 Triglycerides 60 mg/dL (2-149) 08/11/19 13:17 Cholesterol 226 mg/dL (50-199) H 08/11/19 13:17 LDL Cholesterol Direct 135 mg/dL (50-130) H 08/11/19 13:17 HDL Cholesterol 88 mg/dL (40-59) H 08/11/19 13:17 Cholesterol/HDL Ratio 2.56 % 08/11/19 13:17 TSH 2.150 mlU/mL (0.270-4.200) 08/11/19 13:17 Coronavirus (PCR) Negative (Negative) 08/10/19 Unknown Last Vital Signs Temp 97.7 F 08/15/19 19:28 Pulse 76 08/15/19 19:28 Resp 20 08/15/19 19:28 BP 101/55 08/15/19 19:28 Pulse Ox 99 08/15/19 19:28
[2019-08-16] MEDS: OMEGA-3 FATTY ACIDS/FISH OIL 1 GRAM CAP PO SCH ×2 (09:41→22:28)
[2019-08-16] MEDS: busPIRone 5 MG TAB PO SCH ×2 (09:42→22:27)
[2019-08-16] MEDS: risperiDONE 1 MG TAB PO SCH ×2 (09:42→22:27)
[2019-08-16] MEDS: traZODone 50 MG TAB PO SCH (22:27)
--- NOTE | 2019-08-17 07:09 | Progress Note ---
Subjective Date of service: 08/17/19 Principal diagnosis: Dementia with Behavioral Disturbance Subjective Comment: Per Psych Nurse: Patient rested quietly throughout the night. She slept 8 plus hours. Will continue to monitor patient for safety. Psych Progress HPI In my interview with the patient this morning, the patient was in bed, able to say name correctly. She reports mood as feeling well, says her back is hurting and body is acting "stupid". She is not oriented to place, but reports sleeping good and proceeded to uttering random incoherent words. Reason for continuing inpatient treatment: Hx of dementia, disturbances resolved but need to observe for mood stability over 24 hour peroid and medication compliance. Review of Symptoms: Constitutional: Negative for weight loss ENT: Negative for stridor Respiratory: Negative for cough or hemoptysis All other systems reviewed and are negative MENTAL STATUS EXAMINATION General Appearance and Behavior: Age appropriate, good hygiene, wearing appropriate clothes, lying in bed, good eye contact, cooperative with questioning and polite Cooperation: Participating/engaged Psychomotor Behavior: unremarkable and within normal limits Mood:" feeling well" Affect and affective range: good Thought Process: illogical, incoherent and tangential Thought Content: Illogical has history of Dementia Speech: low volume, Regular rate and rhythm Intellectual Functioning: Poor Suicidal Ideation:Unaccessible Homicidal Ideation: Unaccessible Impulse Control: Impaired Insight and Judgment: Impaired Memory: Poor Memory, history of dementia Attention: Distracted Orientation: Alert,but no orientation Assessment and Plan - Patient Problems (1) Dementia with behavioral disturbance Current Visit: Yes Status: Acute Treatment Plan: Due to the psychiatric conditions and treatment listed in the Assessment and Plan - the patient requires continued hospitalization. Will continue inpatient treatment to allow for medication adjustment and monitoring. Will continue q15 min safety checks. Will encourage the use of environmental modifications and non-pharmacologic approaches for the management of behavioral and psychological symptoms. Will continue current psych medications Monitor for medication side effects. Most recent medication adjustments: Continue current medication plans The patient will continue on medications for physical illnesses, and Hospitalist will closely monitor these Continue intensive physical and occupational therapies. Monitor patient's mood, sleep, appetite, and behavior closely. Encourage patient to participate in individual and group therapeutic sessions on the rudolph. Will provide a safe and therapeutic environment for patient. Estimated period of time patient will need to remain in the hospital: [3] Plan for post-hospital care: [Outpatient] Assessment and Plan - Patient Problems (1) Dementia with behavioral disturbance Current Visit: Yes Status: Acute Medications and Allergies Allergies Allergy/AdvReac Type Severity Reaction Status Date / Time No Known Allergies Allergy Unverified 08/10/19 04:52 Home Medications Medication Instructions Recorded Confirmed Last Taken Type Atorvastatin 80 mg PO QHS 08/11/19 08/11/19 2 Days Ago History ~08/09/19 80 mg Centrum Silver Women Tablet 1 tab PO QAM 08/11/19 08/11/19 2 Days Ago History ~08/09/19 1 Clopidogrel 75 mg PO DAILY 08/11/19 08/13/19 Unknown History Sprycel 50 mg PO QAM 08/11/19 08/11/19 2 Days Ago History ~08/09/19 50 mg levETIRAcetam 500 mg PO QDAY 08/11/19 08/11/19 01/01/19 History 500 mg Active Meds: Active Medications Buspirone HCl (Buspar) 5 mg PO BID [facility] Last Admin: 08/16/19 22:27 Dose: 5 mg Documented by: Fish Oil (Fish Oil) 2,000 mg PO BID [facility] Last Admin: 08/16/19 22:28 Dose: 2,000 mg Documented by: Risperidone (Risperdal) 1 mg PO BID [facility] Last Admin: 08/16/19 22:27 Dose: 1 mg Documented by: Trazodone HCl (Desyrel) 50 mg PO QHS [facility] Last Admin: 08/16/19 22:27 Dose: 50 mg Documented by: Ziprasidone (Geodon) 10 mg IM Q6H PRN PRN Reason: Agitation Last Admin: 08/11/19 13:25 Dose: 10 mg Documented by: Results - Results Labs/Vitals: Laboratory Last Values WBC 5.4 K/mm3 (4.5-11.0) 08/11/19 13:17 RBC 4.31 M/mm3 (3.65-5.03) 08/11/19 13:17 Hgb 11.6 gm/dl (10.1-14.3) 08/11/19 13:17 Hct 36.8 % (30.3-42.9) 08/11/19 13:17 MCV 86 fl (79-97) 08/11/19 13:17 MCH 27 pg (28-32) L 08/11/19 13:17 MCHC 32 % (30-34) 08/11/19 13:17 RDW 15.4 % (13.2-15.2) H 08/11/19 13:17 Plt Count 222 K/mm3 (140-440) 08/11/19 13:17 Lymph % (Auto) 29.9 % (13.4-35.0) 08/11/19 13:17 [place] % (Auto) 7.6 % (0.0-7.3) H 08/11/19 13:17 Eos % (Auto) 2.8 % (0.0-4.3) 08/11/19 13:17 Baso % (Auto) 0.6 % (0.0-1.8) 08/11/19 13:17 Lymph # 1.6 K/mm3 (1.2-5.4) 08/11/19 13:17 [place] # 0.4 K/mm3 (0.0-0.8) 08/11/19 13:17 Eos # 0.2 K/mm3 (0.0-0.4) 08/11/19 13:17 Baso # 0.0 K/mm3 (0.0-0.1) 08/11/19 13:17 Seg Neutrophils % 59.1 % (40.0-70.0) 08/11/19 13:17 Seg Neutrophils # 3.2 K/mm3 (1.8-7.7) 08/11/19 13:17 Sodium 144 mmol/L (137-145) 08/11/19 13:17 Potassium 4.6 mmol/L (3.6-5.0) 08/11/19 13:17 Chloride 104.5 mmol/L (98-107) 08/11/19 13:17 Carbon Dioxide 27 mmol/L (22-30) 08/11/19 13:17 Anion Gap 17 mmol/L 08/11/19 13:17 BUN 30 mg/dL (7-17) H 08/11/19 13:17 Creatinine 1.6 mg/dL (0.7-1.2) H 08/11/19 13:17 Estimated GFR 37 ml/min 08/11/19 13:17 BUN/Creatinine Ratio 19 % 08/11/19 13:17 Glucose 107 mg/dL (65-100) H 08/11/19 13:17 POC Glucose 87 (70-105) 08/10/19 13:54 Hemoglobin A1c 4.7 % (4-6) 08/11/19 13:17 Calcium 9.7 mg/dL (8.4-10.2) 08/11/19 13:17 Total Bilirubin 0.20 mg/dL (0.1-1.2) 08/11/19 13:17 AST 53 units/L (5-40) H 08/11/19 13:17 ALT 18 units/L (7-56) 08/11/19 13:17 Alkaline Phosphatase 102 units/L (35-129) 08/11/19 13:17 Total Protein 7.7 g/dL (6.3-8.2) 08/11/19 13:17 Albumin 4.2 g/dL (3.9-5) 08/11/19 13:17 Albumin/Globulin Ratio 1.2 % 08/11/19 13:17 Triglycerides 60 mg/dL (2-149) 08/11/19 13:17 Cholesterol 226 mg/dL (50-199) H 08/11/19 13:17 LDL Cholesterol Direct 135 mg/dL (50-130) H 08/11/19 13:17 HDL Cholesterol 88 mg/dL (40-59) H 08/11/19 13:17 Cholesterol/HDL Ratio 2.56 % 08/11/19 13:17 TSH 2.150 mlU/mL (0.270-4.200) 08/11/19 13:17 Coronavirus (PCR) Negative (Negative) 08/10/19 Unknown Last Vital Signs Temp 97.7 F 08/16/19 19:19 Pulse 73 08/16/19 19:19 Resp 16 08/16/19 19:19 BP 119/63 08/16/19 19:19 Pulse Ox 99 08/16/19 19:19
[2019-08-17] MEDS: busPIRone 5 MG TAB PO SCH ×2 (10:37→21:15)
[2019-08-17] MEDS: risperiDONE 1 MG TAB PO SCH ×2 (10:37→21:15)
[2019-08-17] MEDS: OMEGA-3 FATTY ACIDS/FISH OIL 1 GRAM CAP PO SCH ×2 (10:38→21:16)
[2019-08-17] MEDS: traZODone 50 MG TAB PO SCH (21:15)
--- NOTE | 2019-08-18 06:59 | Progress Note ---
Subjective Date of service: 08/18/19 Principal diagnosis: Dementia with Behavioral Disturbance Subjective Comment: Per Psych Nurse: Pt is alert and oriented to person, pleasantly confused, no agitation, good appetite, medication compliant with encouragement, ambulatory, no complaint voiced, no distress noted, will continue to monitor for safety. Psych Progress HPI Miss Blake seen having breakfast by self, requires no assistance. When asked about mood, she says shes weak, and also states she doesnt know how she slept in a confusing manner. Reason for continuing inpatient treatment: Hx of dementia, disturbances resolved but need to observe for mood stability over 24 hour period and if no incidence, plan to safely discharge Tuesday. MENTAL STATUS EXAMINATION General Appearance and Behavior: Age appropriate, good hygiene, wearing appropriate clothes, lying in bed, good eye contact, cooperative with questioning and polite Cooperation: Participating/engaged Psychomotor Behavior: unremarkable and within normal limits Mood:" feeling well" Affect and affective range: good Thought Process: illogical, incoherent and tangential Thought Content: Illogical has history of Dementia Speech: low volume, Regular rate and rhythm Intellectual Functioning: Poor Suicidal Ideation:Unaccessible Homicidal Ideation: Unaccessible Impulse Control: Impaired Insight and Judgment: Impaired Memory: Poor Memory, history of dementia Attention: Distracted Orientation: Alert,but no orientation Assessment and Plan - Patient Problems (1) Dementia with behavioral disturbance Current Visit: Yes Status: Acute Treatment Plan: Due to the psychiatric conditions and treatment listed in the Assessment and Plan - the patient requires continued hospitalization. Will continue inpatient treatment to allow for medication adjustment and monitoring. Will continue q15 min safety checks. Will encourage the use of environmental modifications and non-pharmacologic approaches for the management of behavioral and psychological symptoms. Will continue current psych medications Monitor for medication side effects. Most recent medication adjustments: Continue current medication plans The patient will continue on medications for physical illnesses, and Hospitalist will closely monitor these Continue intensive physical and occupational therapies. Monitor patient's mood, sleep, appetite, and behavior closely. Encourage patient to participate in individual and group therapeutic sessions on the rudolph. Will provide a safe and therapeutic environment for patient. Estimated period of time patient will need to remain in the hospital: [2] Plan for post-hospital care: [Outpatient] Assessment and Plan - Patient Problems (1) Dementia with behavioral disturbance Current Visit: Yes Status: Acute Medications and Allergies Allergies Allergy/AdvReac Type Severity Reaction Status Date / Time No Known Allergies Allergy Unverified 08/10/19 04:52 Home Medications Medication Instructions Recorded Confirmed Last Taken Type Atorvastatin 80 mg PO QHS 08/11/19 08/11/19 2 Days Ago History ~08/09/19 80 mg Centrum Silver Women Tablet 1 tab PO QA 08/11/19 08/11/19 2 Days Ago History ~08/09/19 1 Clopidogrel 75 mg PO DAILY 08/11/19 08/13/19 Unknown History Sprycel 50 mg PO QAM 08/11/19 08/11/19 2 Days Ago History ~08/09/19 50 mg levETIRAcetam 500 mg PO QDAY 08/11/19 08/11/19 01/01/19 History 500 mg Active Meds: Active Medications Buspirone HCl (Buspar) 5 mg PO BID [facility] Last Admin: 08/17/19 21:15 Dose: 5 mg Documented by: Fish Oil (Fish Oil) 2,000 mg PO BID [facility] Last Admin: 08/17/19 21:16 Dose: 2,000 mg Documented by: Risperidone (Risperdal) 1 mg PO BID [facility] Last Admin: 08/17/19 21:15 Dose: 1 mg Documented by: Trazodone HCl (Desyrel) 50 mg PO QHS [facility] Last Admin: 08/17/19 21:15 Dose: 50 mg Documented by: Ziprasidone (Geodon) 10 mg IM Q6H PRN PRN Reason: Agitation Last Admin: 08/11/19 13:25 Dose: 10 mg Documented by: Results - Results Labs/Vitals: Laboratory Last Values WBC 5.4 K/mm3 (4.5-11.0) 08/11/19 13:17 RBC 4.31 M/mm3 (3.65-5.03) 08/11/19 13:17 Hgb 11.6 gm/dl (10.1-14.3) 08/11/19 13:17 Hct 36.8 % (30.3-42.9) 08/11/19 13:17 MCV 86 fl (79-97) 08/11/19 13:17 MCH 27 pg (28-32) L 08/11/19 13:17 MCHC 32 % (30-34) 08/11/19 13:17 RDW 15.4 % (13.2-15.2) H 08/11/19 13:17 Plt Count 222 K/mm3 (140-440) 08/11/19 13:17 Lymph % (Auto) 29.9 % (13.4-35.0) 08/11/19 13:17 [place] % (Auto) 7.6 % (0.0-7.3) H 08/11/19 13:17 Eos % (Auto) 2.8 % (0.0-4.3) 08/11/19 13:17 Baso % (Auto) 0.6 % (0.0-1.8) 08/11/19 13:17 Lymph # 1.6 K/mm3 (1.2-5.4) 08/11/19 13:17 [place] # 0.4 K/mm3 (0.0-0.8) 08/11/19 13:17 Eos # 0.2 K/mm3 (0.0-0.4) 08/11/19 13:17 Baso # 0.0 K/mm3 (0.0-0.1) 08/11/19 13:17 Seg Neutrophils % 59.1 % (40.0-70.0) 08/11/19 13:17 Seg Neutrophils # 3.2 K/mm3 (1.8-7.7) 08/11/19 13:17 Sodium 144 mmol/L (137-145) 08/11/19 13:17 Potassium 4.6 mmol/L (3.6-5.0) 08/11/19 13:17 Chloride 104.5 mmol/L (98-107) 08/11/19 13:17 Carbon Dioxide 27 mmol/L (22-30) 08/11/19 13:17 Anion Gap 17 mmol/L 08/11/19 13:17 BUN 30 mg/dL (7-17) H 08/11/19 13:17 Creatinine 1.6 mg/dL (0.7-1.2) H 08/11/19 13:17 Estimated GFR 37 ml/min 08/11/19 13:17 BUN/Creatinine Ratio 19 % 08/11/19 13:17 Glucose 107 mg/dL (65-100) H 08/11/19 13:17 POC Glucose 87 (70-105) 08/10/19 13:54 Hemoglobin A1c 4.7 % (4-6) 08/11/19 13:17 Calcium 9.7 mg/dL (8.4-10.2) 08/11/19 13:17 Total Bilirubin 0.20 mg/dL (0.1-1.2) 08/11/19 13:17 AST 53 units/L (5-40) H 08/11/19 13:17 ALT 18 units/L (7-56) 08/11/19 13:17 Alkaline Phosphatase 102 units/L (35-129) 08/11/19 13:17 Total Protein 7.7 g/dL (6.3-8.2) 08/11/19 13:17 Albumin 4.2 g/dL (3.9-5) 08/11/19 13:17 Albumin/Globulin Ratio 1.2 % 08/11/19 13:17 Triglycerides 60 mg/dL (2-149) 08/11/19 13:17 Cholesterol 226 mg/dL (50-199) H 08/11/19 13:17 LDL Cholesterol Direct 135 mg/dL (50-130) H 08/11/19 13:17 HDL Cholesterol 88 mg/dL (40-59) H 08/11/19 13:17 Cholesterol/HDL Ratio 2.56 % 08/11/19 13:17 TSH 2.150 mlU/mL (0.270-4.200) 08/11/19 13:17 Coronavirus (PCR) Negative (Negative) 08/10/19 Unknown Last Vital Signs Temp 98.6 F 08/17/19 22:00 Pulse 65 08/17/19 22:00 Resp 18 08/17/19 22:00 BP 112/59 08/17/19 22:00 Pulse Ox 99 08/17/19 22:00
[2019-08-18] MEDS: OMEGA-3 FATTY ACIDS/FISH OIL 1 GRAM CAP PO SCH ×2 (10:55→22:44)
[2019-08-18] MEDS: busPIRone 5 MG TAB PO SCH ×2 (10:55→22:44)
[2019-08-18] MEDS: risperiDONE 1 MG TAB PO SCH ×2 (11:02→22:43)
[2019-08-18] MEDS: traZODone 50 MG TAB PO SCH (22:44)
--- NOTE | 2019-08-19 08:39 | Progress Note ---
Subjective Date of service: 08/19/19 Principal diagnosis: Dementia with Behavioral Disturbance Subjective Comment: Per Psych Nurse: Patient is pleasantly confused. She is compliant with meds with encouragement. Appetite fair and no complaints of pain. She denies SI and had no episode of aggressive behavior. calm, and quiet. Able to be redirected, assist with ADLs. Will continue to monitor for safety. Psych Progress HPI Patient in social room, sitted and waiting for breakfast. She reports sleeping well, has no complaints today. Patient is non drowsy, alert but not oriented to person. Reason for continuing inpatient treatment: Hx of dementia, disturbances resolved. Patient has been stable for over 24 hours, nurses denies any behavioral report. Plan to discharge tomorrow morning. MENTAL STATUS EXAMINATION General Appearance and Behavior: Age appropriate, good hygiene, wearing appropriate clothes, lying in bed, good eye contact, cooperative with questioning and polite Cooperation: Participating/engaged Psychomotor Behavior: unremarkable and within normal limits Mood:" feeling good" Affect and affective range: good Thought Process: illogical, incoherent and tangential Thought Content: Illogical has history of Dementia Speech: low volume, Regular rate and rhythm Intellectual Functioning: Poor Suicidal Ideation:Unaccessible Homicidal Ideation: Unaccessible Impulse Control: Unimpaired Insight and Judgment: Impaired Memory: Poor Memory, history of dementia Attention: Distracted Orientation: Alert Assessment and Plan - Patient Problems (1) Dementia with behavioral disturbance Current Visit: Yes Status: Acute Treatment Plan: Due to the psychiatric conditions and treatment listed in the Assessment and Plan - the patient requires continued hospitalization. Will continue inpatient treatment to allow for medication adjustment and mon itoring. Will continue q15 min safety checks. Will encourage the use of environmental modifications and non-pharmacologic approaches for the management of behavioral and psychological symptoms. Will continue current psych medications Monitor for medication side effects. Most recent medication adjustments: Continue current medication plans The patient will continue on medications for physical illnesses, and Hospitalist will closely monitor these Continue intensive physical and occupational therapies. Monitor patient's mood, sleep, appetite, and behavior closely. Encourage patient to participate in individual and group therapeutic sessions on the rudolph. Will provide a safe and therapeutic environment for patient. Estimated period of time patient will need to remain in the hospital: [1] Plan for post-hospital care: [Outpatient] Assessment and Plan - Patient Problems (1) Dementia with behavioral disturbance Current Visit: Yes Status: Acute Medications and Allergies Allergies Allergy/AdvReac Type Severity Reaction Status Date / Time No Known Allergies Allergy Unverified 08/10/19 04:52 Home Medications Medication Instructions Recorded Confirmed Last Taken Type Atorvastatin 80 mg PO QHS 08/11/19 08/11/19 2 Days Ago History ~08/09/19 80 mg Centrum Silver Women Tablet 1 tab PO QA 08/11/19 08/11/19 2 Days Ago History ~08/09/19 1 Clopidogrel 75 mg PO DAILY 08/11/19 08/13/19 Unknown History Sprycel 50 mg PO QAM 08/11/19 08/11/19 2 Days Ago History ~08/09/19 50 mg levETIRAcetam 500 mg PO QDAY 08/11/19 08/11/19 01/01/19 History 500 mg Active Meds: Active Medications Buspirone HCl (Buspar) 5 mg PO BID [facility] Last Admin: 08/18/19 22:44 Dose: 5 mg Documented by: Fish Oil (Fish Oil) 2,000 mg PO BID [facility] Last Admin: 08/18/19 22:44 Dose: 2,000 mg Documented by: Risperidone (Risperdal) 1 mg PO BID [facility] Last Admin: 08/18/19 22:43 Dose: 1 mg Documented by: Trazodone HCl (Desyrel) 50 mg PO QHS [facility] Last Admin: 08/18/19 22:44 Dose: 50 mg Documented by: Ziprasidone (Geodon) 10 mg IM Q6H PRN PRN Reason: Agitation Last Admin: 08/11/19 13:25 Dose: 10 mg Documented by: Results - Results Labs/Vitals: Laboratory Last Values WBC 5.4 K/mm3 (4.5-11.0) 08/11/19 13:17 RBC 4.31 M/mm3 (3.65-5.03) 08/11/19 13:17 Hgb 11.6 gm/dl (10.1-14.3) 08/11/19 13:17 Hct 36.8 % (30.3-42.9) 08/11/19 13:17 MCV 86 fl (79-97) 08/11/19 13:17 MCH 27 pg (28-32) L 08/11/19 13:17 MCHC 32 % (30-34) 08/11/19 13:17 RDW 15.4 % (13.2-15.2) H 08/11/19 13:17 Plt Count 222 K/mm3 (140-440) 08/11/19 13:17 Lymph % (Auto) 29.9 % (13.4-35.0) 08/11/19 13:17 [place] % (Auto) 7.6 % (0.0-7.3) H 08/11/19 13:17 Eos % (Auto) 2.8 % (0.0-4.3) 08/11/19 13:17 Baso % (Auto) 0.6 % (0.0-1.8) 08/11/19 13:17 Lymph # 1.6 K/mm3 (1.2-5.4) 08/11/19 13:17 [place] # 0.4 K/mm3 (0.0-0.8) 08/11/19 13:17 Eos # 0.2 K/mm3 (0.0-0.4) 08/11/19 13:17 Baso # 0.0 K/mm3 (0.0-0.1) 08/11/19 13:17 Seg Neutrophils % 59.1 % (40.0-70.0) 08/11/19 13:17 Seg Neutrophils # 3.2 K/mm3 (1.8-7.7) 08/11/19 13:17 Sodium 144 mmol/L (137-145) 08/11/19 13:17 Potassium 4.6 mmol/L (3.6-5.0) 08/11/19 13:17 Chloride 104.5 mmol/L (98-107) 08/11/19 13:17 Carbon Dioxide 27 mmol/L (22-30) 08/11/19 13:17 Anion Gap 17 mmol/L 08/11/19 13:17 BUN 30 mg/dL (7-17) H 08/11/19 13:17 Creatinine 1.6 mg/dL (0.7-1.2) H 08/11/19 13:17 Estimated GFR 37 ml/min 08/11/19 13:17 BUN/Creatinine Ratio 19 % 08/11/19 13:17 Glucose 107 mg/dL (65-100) H 08/11/19 13:17 POC Glucose 87 (70-105) 08/10/19 13:54 Hemoglobin A1c 4.7 % (4-6) 08/11/19 13:17 Calcium 9.7 mg/dL (8.4-10.2) 08/11/19 13:17 Total Bilirubin 0.20 mg/dL (0.1-1.2) 08/11/19 13:17 AST 53 units/L (5-40) H 08/11/19 13:17 ALT 18 units/L (7-56) 08/11/19 13:17 Alkaline Phosphatase 102 units/L (35-129) 08/11/19 13:17 Total Protein 7.7 g/dL (6.3-8.2) 08/11/19 13:17 Albumin 4.2 g/dL (3.9-5) 08/11/19 13:17 Albumin/Globulin Ratio 1.2 % 08/11/19 13:17 Triglycerides 60 mg/dL (2-149) 08/11/19 13:17 Cholesterol 226 mg/dL (50-199) H 08/11/19 13:17 LDL Cholesterol Direct 135 mg/dL (50-130) H 08/11/19 13:17 HDL Cholesterol 88 mg/dL (40-59) H 08/11/19 13:17 Cholesterol/HDL Ratio 2.56 % 08/11/19 13:17 TSH 2.150 mlU/mL (0.270-4.200) 08/11/19 13:17 Coronavirus (PCR) Negative (Negative) 08/10/19 Unknown Last Vital Signs Temp 97.5 F L 08/18/19 09:36 Pulse 78 08/18/19 09:36 Resp 16 08/18/19 09:36 BP 93/46 08/18/19 09:36 Pulse Ox 98 08/18/19 09:36
[2019-08-19] MEDS: busPIRone 5 MG TAB PO SCH ×2 (09:18→21:37)
[2019-08-19] MEDS: OMEGA-3 FATTY ACIDS/FISH OIL 1 GRAM CAP PO SCH ×2 (09:18→21:36)
[2019-08-19] MEDS: risperiDONE 1 MG TAB PO SCH ×2 (09:18→21:37)
[2019-08-19] MEDS: traZODone 50 MG TAB PO SCH (21:37)
--- NOTE | 2019-08-20 07:00 | Progress Note ---
Subjective Date of service: 08/20/19 Principal diagnosis: Dementia with Behavioral Disturbance Subjective Comment: Per Psych Nurse: Received patient at 1900. Patient is walking out of restroom. She walks up and begins to interact appropriately with a peer. She denies any needs at present. Will continue to monitor patient for safety. Psych Progress HPI Patient seen in common room, reports not feeling well again today because she lost a friend yesterday who happens to also be a relative known to family and she kept repeating same statement over and over again. Reason for continuing inpatient treatment: Hx of dementia, disturbances resolved. Patient has been stable for over 24 hours, nurses denies any behavioral report. Plan to discharge tomorrow morning. MENTAL STATUS EXAMINATION General Appearance and Behavior: Age appropriate, good hygiene, wearing appropriate clothes, lying in bed, good eye contact, cooperative with questioning and polite Cooperation: Participating/engaged Psychomotor Behavior: unremarkable and within normal limits Mood:" feeling good" Affect and affective range: good Thought Process: illogical, incoherent and tangential Thought Content: Illogical has history of Dementia Speech: low volume, Regular rate and rhythm Intellectual Functioning: Poor Suicidal Ideation:Unaccessible Homicidal Ideation: Unaccessible Impulse Control: Unimpaired Insight and Judgment: Impaired Memory: Poor Memory, history of dementia Attention: Distracted Orientation: Alert Assessment and Plan - Patient Problems (1) Dementia with behavioral disturbance Current Visit: Yes Status: Acute Treatment Plan: Due to the psychiatric conditions and treatment listed in the Assessment and Plan - the patient requires continued hospitalization. Will continue inpatient treatment to allow for medication adjustment and monitoring. Will continue q15 min safety checks. Will encourage the use of environmental modifications and non-pharmacologic approaches for the management of behavioral and psychological symptoms. Will continue current psych medications Monitor for medication side effects. Most recent medication adjustments: Continue current medication plans The patient will continue on medications for physical illnesses, and Hospitalist will closely monitor these Continue intensive physical and occupational therapies. Monitor patient's mood, sleep, appetite, and behavior closely. Encourage patient to participate in individual and group therapeutic sessions on the rudolph. Will provide a safe and therapeutic environment for patient. Estimated period of time patient will need to remain in the hospital: [0] Plan for post-hospital care: [Outpatient] Assessment and Plan - Patient Problems (1) Dementia with behavioral disturbance Current Visit: Yes Status: Acute Medications and Allergies Allergies Allergy/AdvReac Type Severity Reaction Status Date / Time No Known Allergies Allergy Unverified 08/10/19 04:52 Home Medications Medication Instructions Recorded Confirmed Last Taken Type Atorvastatin 80 mg PO QHS 08/11/19 08/11/19 2 Days Ago History ~08/09/19 80 mg Centrum Silver Women Tablet 1 tab PO QA 08/11/19 08/11/19 2 Days Ago History ~08/09/19 1 Clopidogrel 75 mg PO DAILY 08/11/19 08/13/19 Unknown History Sprycel 50 mg PO QAM 08/11/19 08/11/19 2 Days Ago History ~08/09/19 50 mg levETIRAcetam 500 mg PO QDAY 08/11/19 08/11/19 01/01/19 History 500 mg Active Meds: Active Medications Buspirone HCl (Buspar) 5 mg PO BID [facility] Last Admin: 08/19/19 21:37 Dose: 5 mg Documented by: Fish Oil (Fish Oil) 2,000 mg PO BID [facility] Last Admin: 08/19/19 21:36 Dose: 2,000 mg Documented by: Risperidone (Risperdal) 1 mg PO BID [facility] Last Admin: 08/19/19 21:37 Dose: 1 mg Documented by: Trazodone HCl (Desyrel) 50 mg PO QHS [facility] Last Admin: 08/19/19 21:37 Dose: 50 mg Documented by: Ziprasidone (Geodon) 10 mg IM Q6H PRN PRN Reason: Agitation Last Admin: 08/11/19 13:25 Dose: 10 mg Documented by: Results - Results Labs/Vitals: Laboratory Last Values WBC 5.4 K/mm3 (4.5-11.0) 08/11/19 13:17 RBC 4.31 M/mm3 (3.65-5.03) 08/11/19 13:17 Hgb 11.6 gm/dl (10.1-14.3) 08/11/19 13:17 Hct 36.8 % (30.3-42.9) 08/11/19 13:17 MCV 86 fl (79-97) 08/11/19 13:17 MCH 27 pg (28-32) L 08/11/19 13:17 MCHC 32 % (30-34) 08/11/19 13:17 RDW 15.4 % (13.2-15.2) H 08/11/19 13:17 Plt Count 222 K/mm3 (140-440) 08/11/19 13:17 Lymph % (Auto) 29.9 % (13.4-35.0) 08/11/19 13:17 [place] % (Auto) 7.6 % (0.0-7.3) H 08/11/19 13:17 Eos % (Auto) 2.8 % (0.0-4.3) 08/11/19 13:17 Baso % (Auto) 0.6 % (0.0-1.8) 08/11/19 13:17 Lymph # 1.6 K/mm3 (1.2-5.4) 08/11/19 13:17 [place] # 0.4 K/mm3 (0.0-0.8) 08/11/19 13:17 Eos # 0.2 K/mm3 (0.0-0.4) 08/11/19 13:17 Baso # 0.0 K/mm3 (0.0-0.1) 08/11/19 13:17 Seg Neutrophils % 59.1 % (40.0-70.0) 08/11/19 13:17 Seg Neutrophils # 3.2 K/mm3 (1.8-7.7) 08/11/19 13:17 Sodium 144 mmol/L (137-145) 08/11/19 13:17 Potassium 4.6 mmol/L (3.6-5.0) 08/11/19 13:17 Chloride 104.5 mmol/L (98-107) 08/11/19 13:17 Carbon Dioxide 27 mmol/L (22-30) 08/11/19 13:17 Anion Gap 17 mmol/L 08/11/19 13:17 BUN 30 mg/dL (7-17) H 08/11/19 13:17 Creatinine 1.6 mg/dL (0.7-1.2) H 08/11/19 13:17 Estimated GFR 37 ml/min 08/11/19 13:17 BUN/Creatinine Ratio 19 % 08/11/19 13:17 Glucose 107 mg/dL (65-100) H 08/11/19 13:17 POC Glucose 87 (70-105) 08/10/19 13:54 Hemoglobin A1c 4.7 % (4-6) 08/11/19 13:17 Calcium 9.7 mg/dL (8.4-10.2) 08/11/19 13:17 Total Bilirubin 0.20 mg/dL (0.1-1.2) 08/11/19 13:17 AST 53 units/L (5-40) H 08/11/19 13:17 ALT 18 units/L (7-56) 08/11/19 13:17 Alkaline Phosphatase 102 units/L (35-129) 08/11/19 13:17 Total Protein 7.7 g/dL (6.3-8.2) 08/11/19 13:17 Albumin 4.2 g/dL (3.9-5) 08/11/19 13:17 Albumin/Globulin Ratio 1.2 % 08/11/19 13:17 Triglycerides 60 mg/dL (2-149) 08/11/19 13:17 Cholesterol 226 mg/dL (50-199) H 08/11/19 13:17 LDL Cholesterol Direct 135 mg/dL (50-130) H 08/11/19 13:17 HDL Cholesterol 88 mg/dL (40-59) H 08/11/19 13:17 Cholesterol/HDL Ratio 2.56 % 08/11/19 13:17 TSH 2.150 mlU/mL (0.270-4.200) 08/11/19 13:17 Coronavirus (PCR) Negative (Negative) 08/10/19 Unknown Last Vital Signs Temp 98.5 F 08/19/19 22:00 Pulse 85 08/19/19 22:00 Resp 18 08/19/19 22:00 BP 127/67 08/19/19 22:00 Pulse Ox 99 08/19/19 22:00
[2019-08-20] MEDS: busPIRone 5 MG TAB PO SCH ×2 (12:58→21:36)
[2019-08-20] MEDS: OMEGA-3 FATTY ACIDS/FISH OIL 1 GRAM CAP PO SCH ×2 (12:58→21:36)
[2019-08-20] MEDS: risperiDONE 1 MG TAB PO SCH ×2 (12:59→21:36)
[2019-08-20] MEDS: traZODone 50 MG TAB PO SCH (21:36)
--- NOTE | 2019-08-21 07:09 | Progress Note ---
Subjective Date of service: 08/21/19 Principal diagnosis: Dementia with Behavioral Disturbance Subjective Comment: Per Psych Nurse: pt is alert and oriented x2, calm and cooperative, interacts with peers, pleasantly confused, delusional, refers to two ruben bears with her as her sons, medication compliant, no agitation this shift, no complaint voiced, will continue to monitor for safety. Psych Progress HPI Patient still providing same response to how shes doing, she would reply " I am not well" otherwise she has been compliant to medications, verbal commands and displayed no agitation or aggression towards staff for more than 72 hours. Reason for continuing inpatient treatment: Hx of dementia, disturbances resolving, if no disturbances reported by the end of the day will plan to discharge tomorrow. MENTAL STATUS EXAMINATION General Appearance and Behavior: Age appropriate, good hygiene, wearing appropriate clothes, lying in bed, good eye contact, cooperative with questioning and polite Cooperation: Participating/engaged Psychomotor Behavior: unremarkable and within normal limits Mood:" feeling good" Affect and affective range: good Thought Process: illogical, incoherent and tangential Thought Content: hx history of Dementia Speech: low volume, Regular rate and rhythm Intellectual Functioning: Poor Suicidal Ideation:Unaccessible Homicidal Ideation: Unaccessible Impulse Control: Unimpaired Insight and Judgment: Impaired Memory: Poor Memory, history of dementia Attention: Distracted Orientation: Alert Assessment and Plan - Patient Problems (1) Dementia with behavioral disturbance Current Visit: Yes Status: Acute Treatment Plan: Due to the psychiatric conditions and treatment listed in the Assessment and Plan - the patient requires continued hospitalization. Will continue inpatient treatment to allow for medication adjustment and monitoring. Will continue q15 min safety checks. Will encourage the use of environmental modifications and non-pharmacologic approaches for the management of behavioral and psychological symptoms. Will continue current psych medications Monitor for medication side effects. Most recent medication adjustments: Continue current medication plans The patient will continue on medications for physical illnesses, and Hospitalist will closely monitor these Continue intensive physical and occupational therapies. Monitor patient's mood, sleep, appetite, and behavior closely. Encourage patient to participate in individual and group therapeutic sessions on the rudolph. Will provide a safe and therapeutic environment for patient. Estimated period of time patient will need to remain in the hospital: [1] Plan for post-hospital care: [Outpatient] Assessment and Plan - Patient Problems (1) Dementia with behavioral disturbance Current Visit: Yes Status: Acute Medications and Allergies Allergies Allergy/AdvReac Type Severity Reaction Status Date / Time No Known Allergies Allergy Unverified 08/10/19 04:52 Home Medications Medication Instructions Recorded Confirmed Last Taken Type Clopidogrel 75 mg PO DAILY 08/11/19 08/13/19 Unknown History [place]-3 Fatty Acids/Fish Oil [Fish 2,000 mg PO BID #60 capsule 08/21/19 Unknown Rx Oil] busPIRone [Buspar] 5 mg PO BID #60 tablet 08/21/19 Unknown Rx risperiDONE [RisperDAL] 1 mg PO BID #60 tablet 08/21/19 Unknown Rx traZODone [Desyrel] 50 mg PO QHS #30 tablet 08/21/19 Unknown Rx Active Meds: Active Medications Buspirone HCl (Buspar) [address] [facility] Last Admin: 08/20/19 21:36 Dose: 5 mg Documented by: Fish Oil (Fish Oil) 2,[address] [facility] Last Admin: 08/20/19 21:36 Dose: 2,000 mg Documented by: Risperidone (Risperdal) [address] [facility] Last Admin: 08/20/19 21:36 Dose: 1 mg Documented by: Trazodone HCl (Desyrel) [address] [facility] Last Admin: 08/20/19 21:36 Dose: 50 mg Documented by: Ziprasidone (Geodon) 10 mg IM Q6H PRN PRN Reason: Agitation Last Admin: 08/11/19 13:25 Dose: 10 mg Documented by: Results - Results Labs/Vitals: Laboratory Last Values WBC 5.4 K/mm3 (4.5-11.0) 08/11/19 13:17 RBC 4.31 M/mm3 (3.65-5.03) 08/11/19 13:17 Hgb 11.6 gm/dl (10.1-14.3) 08/11/19 13:17 Hct 36.8 % (30.3-42.9) 08/11/19 13:17 MCV 86 fl (79-97) 08/11/19 13:17 MCH 27 pg (28-32) L 08/11/19 13:17 MCHC 32 % (30-34) 08/11/19 13:17 RDW 15.4 % (13.2-15.2) H 08/11/19 13:17 Plt Count 222 K/mm3 (140-440) 08/11/19 13:17 Lymph % (Auto) 29.9 % (13.4-35.0) 08/11/19 13:17 [place] % (Auto) 7.6 % (0.0-7.3) H 08/11/19 13:17 Eos % (Auto) 2.8 % (0.0-4.3) 08/11/19 13:17 Baso % (Auto) 0.6 % (0.0-1.8) 08/11/19 13:17 Lymph # 1.6 K/mm3 (1.2-5.4) 08/11/19 13:17 [place] # 0.4 K/mm3 (0.0-0.8) 08/11/19 13:17 Eos # 0.2 K/mm3 (0.0-0.4) 08/11/19 13:17 Baso # 0.0 K/mm3 (0.0-0.1) 08/11/19 13:17 Seg Neutrophils % 59.1 % (40.0-70.0) 08/11/19 13:17 Seg Neutrophils # 3.2 K/mm3 (1.8-7.7) 08/11/19 13:17 Sodium 144 mmol/L (137-145) 08/11/19 13:17 Potassium 4.6 mmol/L (3.6-5.0) 08/11/19 13:17 Chloride 104.5 mmol/L (98-107) 08/11/19 13:17 Carbon Dioxide 27 mmol/L (22-30) 08/11/19 13:17 Anion Gap 17 mmol/L 08/11/19 13:17 BUN 30 mg/dL (7-17) H 08/11/19 13:17 Creatinine 1.6 mg/dL (0.7-1.2) H 08/11/19 13:17 Estimated GFR 37 ml/min 08/11/19 13:17 BUN/Creatinine Ratio 19 % 08/11/19 13:17 Glucose 107 mg/dL (65-100) H 08/11/19 13:17 POC Glucose 87 (70-105) 08/10/19 13:54 Hemoglobin A1c 4.7 % (4-6) 08/11/19 13:17 Calcium 9.7 mg/dL (8.4-10.2) 08/11/19 13:17 Total Bilirubin 0.20 mg/dL (0.1-1.2) 08/11/19 13:17 AST 53 units/L (5-40) H 08/11/19 13:17 ALT 18 units/L (7-56) 08/11/19 13:17 Alkaline Phosphatase 102 units/L (35-129) 08/11/19 13:17 Total Protein 7.7 g/dL (6.3-8.2) 08/11/19 13:17 Albumin 4.2 g/dL (3.9-5) 08/11/19 13:17 Albumin/Globulin Ratio 1.2 % 08/11/19 13:17 Triglycerides 60 mg/dL (2-149) 08/11/19 13:17 Cholesterol 226 mg/dL (50-199) H 08/11/19 13:17 LDL Cholesterol Direct 135 mg/dL (50-130) H 08/11/19 13:17 HDL Cholesterol 88 mg/dL (40-59) H 08/11/19 13:17 Cholesterol/HDL Ratio 2.56 % 08/11/19 13:17 TSH 2.150 mlU/mL (0.270-4.200) 08/11/19 13:17 Coronavirus (PCR) Negative (Negative) 08/10/19 Unknown Last Vital Signs Temp 98.8 F 08/20/19 19:54 Pulse 71 08/20/19 19:54 Resp 20 08/20/19 19:54 BP 106/51 08/20/19 19:54 Pulse Ox 100 08/20/19 19:54
[2019-08-21] MEDS: risperiDONE 1 MG TAB PO SCH ×2 (11:24→22:01)
[2019-08-21] MEDS: busPIRone 5 MG TAB PO SCH ×2 (11:24→22:01)
[2019-08-21] MEDS: OMEGA-3 FATTY ACIDS/FISH OIL 1 GRAM CAP PO SCH ×2 (11:24→22:01)
[2019-08-21] MEDS: traZODone 50 MG TAB PO SCH (22:01)
[2019-08-22 06:16] LABS: Calcium 9.2 mg/dL (8.4-10.2)
--- NOTE | 2019-08-22 07:17 | Progress Note ---
Subjective Date of service: 08/22/19 Principal diagnosis: Dementia with Behavioral Disturbance Subjective Comment: Per Psych Nurse: Pt is still irritable but was able to have her communicating with staff. Stated "I just want to go home." Encouraged her to speak with the doctor in the am. She was less irritable and started smiling. She was compliant with her medication with some prompting. No complaints of pain. S/W JADEN Acevedo regarding pts poor intake, ordered BMP in am. Psych Progress HPI Patient reports she is not feeling well again today, and when asked whats bothering her, she says she doesnt know. Patient reports sleeping ok and happy about news of daughter picking her up. Reason for continuing inpatient treatment: Hx of dementia, disturbances resolved, plan to discharge with daughter today. MENTAL STATUS EXAMINATION General Appearance and Behavior: Age appropriate, good hygiene, wearing appropriate clothes, lying in bed, good eye contact, cooperative with questioning and polite Cooperation: Participating/engaged Psychomotor Behavior: unremarkable and within normal limits Mood:" feeling good" Affect and affective range: good Thought Process: illogical, incoherent and tangential Thought Content: hx history of Dementia Speech: low volume, Regular rate and rhythm Intellectual Functioning: Poor Suicidal Ideation:Unaccessible Homicidal Ideation: Unaccessible Impulse Control: Unimpaired Insight and Judgment: Impaired Memory: Poor Memory, history of dementia Attention: Distracted Orientation: Alert Assessment and Plan - Patient Problems (1) Dementia with behavioral disturbance Current Visit: Yes Status: Acute Treatment Plan: Plan to discharge today. Will continue inpatient treatment to allow for medication adjustment and monitoring. Will continue q15 min safety checks. Will encourage the use of environmental modifications and non-pharmacologic approaches for the management of behavioral and psychological symptoms. Will continue current psych medications Monitor for medication side effects. Most recent medication adjustments: Continue current medication plans The patient will continue on medications for physical illnesses, and Hospitalist will closely monitor these Continue intensive physical and occupational therapies. Monitor patient's mood, sleep, appetite, and behavior closely. Encourage patient to participate in individual and group therapeutic sessions on the rudolph. Will provide a safe and therapeutic environment for patient. Estimated period of time patient will need to remain in the hospital: [0] Plan for post-hospital care: [Outpatient] Assessment and Plan - Patient Problems (1) Dementia with behavioral disturbance Current Visit: Yes Status: Acute Medications and Allergies Allergies Allergy/AdvReac Type Severity Reaction Status Date / Time No Known Allergies Allergy Unverified 08/10/19 04:52 Home Medications Medication Instructions Recorded Confirmed Last Taken Type Clopidogrel 75 mg PO DAILY 08/11/19 08/13/19 Unknown History [place]-3 Fatty Acids/Fish Oil [Fish 2,000 mg PO BID #60 capsule 08/21/19 Unknown Rx Oil] busPIRone [Buspar] 5 mg PO BID #60 tablet 08/21/19 Unknown Rx risperiDONE [RisperDAL] 1 mg PO BID #60 tablet 08/21/19 Unknown Rx traZODone [Desyrel] 50 mg PO QHS #30 tablet 08/21/19 Unknown Rx Active Meds: Active Medications Buspirone HCl (Buspar) 5 mg PO BID [facility] Last Admin: 08/21/19 22:01 Dose: 5 mg Documented by: Fish Oil (Fish Oil) 2,000 mg PO BID [facility] Last Admin: 08/21/19 22:01 Dose: 2,000 mg Documented by: Risperidone (Risperdal) 1 mg PO BID [facility] Last Admin: 08/21/19 22:01 Dose: 1 mg Documented by: Trazodone HCl (Desyrel) 50 mg PO QHS [facility] Last Admin: 08/21/19 22:01 Dose: 50 mg Documented by: Ziprasidone (Geodon) 10 mg IM Q6H PRN PRN Reason: Agitation Last Admin: 08/11/19 13:25 Dose: 10 mg Documented by: Results - Results Labs/Vitals: Laboratory Last Values WBC 5.4 K/mm3 (4.5-11.0) 08/11/19 13:17 RBC 4.31 M/mm3 (3.65-5.03) 08/11/19 13:17 Hgb 11.6 gm/dl (10.1-14.3) 08/11/19 13:17 Hct 36.8 % (30.3-42.9) 08/11/19 13:17 MCV 86 fl (79-97) 08/11/19 13:17 MCH 27 pg (28-32) L 08/11/19 13:17 MCHC 32 % (30-34) 08/11/19 13:17 RDW 15.4 % (13.2-15.2) H 08/11/19 13:17 Plt Count 222 K/mm3 (140-440) 08/11/19 13:17 Lymph % (Auto) 29.9 % (13.4-35.0) 08/11/19 13:17 [place] % (Auto) 7.6 % (0.0-7.3) H 08/11/19 13:17 Eos % (Auto) 2.8 % (0.0-4.3) 08/11/19 13:17 Baso % (Auto) 0.6 % (0.0-1.8) 08/11/19 13:17 Lymph # 1.6 K/mm3 (1.2-5.4) 08/11/19 13:17 [place] # 0.4 K/mm3 (0.0-0.8) 08/11/19 13:17 Eos # 0.2 K/mm3 (0.0-0.4) 08/11/19 13:17 Baso # 0.0 K/mm3 (0.0-0.1) 08/11/19 13:17 Seg Neutrophils % 59.1 % (40.0-70.0) 08/11/19 13:17 Seg Neutrophils # 3.2 K/mm3 (1.8-7.7) 08/11/19 13:17 Sodium 142 mmol/L (137-145) 08/22/19 05:44 Potassium 5.0 mmol/L (3.6-5.0) 08/22/19 05:44 Chloride 105.9 mmol/L (98-107) 08/22/19 05:44 Carbon Dioxide 23 mmol/L (22-30) 08/22/19 05:44 Anion Gap 18 mmol/L 08/22/19 05:44 BUN 55 mg/dL (7-17) H 08/22/19 05:44 Creatinine 1.7 mg/dL (0.7-1.2) H 08/22/19 05:44 Estimated GFR 35 ml/min 08/22/19 05:44 BUN/Creatinine Ratio 32 % 08/22/19 05:44 Glucose 81 mg/dL (65-100) 08/22/19 05:44 POC Glucose 87 (70-105) 08/10/19 13:54 Hemoglobin A1c 4.7 % (4-6) 08/11/19 13:17 Calcium 9.2 mg/dL (8.4-10.2) 08/22/19 05:44 Total Bilirubin 0.20 mg/dL (0.1-1.2) 08/11/19 13:17 AST 53 units/L (5-40) H 08/11/19 13:17 ALT 18 units/L (7-56) 08/11/19 13:17 Alkaline Phosphatase 102 units/L (35-129) 08/11/19 13:17 Total Protein 7.7 g/dL (6.3-8.2) 08/11/19 13:17 Albumin 4.2 g/dL (3.9-5) 08/11/19 13:17 Albumin/Globulin Ratio 1.2 % 08/11/19 13:17 Triglycerides 60 mg/dL (2-149) 08/11/19 13:17 Cholesterol 226 mg/dL (50-199) H 08/11/19 13:17 LDL Cholesterol Direct 135 mg/dL (50-130) H 08/11/19 13:17 HDL Cholesterol 88 mg/dL (40-59) H 08/11/19 13:17 Cholesterol/HDL Ratio 2.56 % 08/11/19 13:17 TSH 2.150 mlU/mL (0.270-4.200) 08/11/19 13:17 Coronavirus (PCR) Negative (Negative) 08/10/19 Unknown Last Vital Signs Temp 98.4 F 08/21/19 09:46 Pulse 77 08/21/19 09:46 Resp 18 08/21/19 09:46 BP 89/54 08/21/19 09:46 Pulse Ox 97 08/21/19 09:46
[2019-08-22] MEDS: OMEGA-3 FATTY ACIDS/FISH OIL 1 GRAM CAP PO SCH (10:30)
[2019-08-22] MEDS: risperiDONE 1 MG TAB PO SCH (10:30)
[2019-08-22] MEDS: busPIRone 5 MG TAB PO SCH (10:30)
[2019-08-22 11:40] VITALS: BP 100/58
--- NOTE | 2019-08-22 12:20 | Discharge Summary ---
Providers - Providers Date of Admission: 08/10/19 11:08 Date of discharge: 08/22/19 Attending physician: JOYCE AMBROSE MD 08/10/19 11:08 Consult to Physician [CONS] Routine Comment: Consulting Provider: LATIA WALDEN Physician Instructions: Reason For Exam: manage medical conditions Primary care physician: DIRECTOR OF NUCLEAR MEDICINE Hospitalization Reason for admission: Danger to others, Unable to care for self Condition: Good Hospital course: The patient was provided inpatient psychiatric treatment with safe and supportive environment, group therapy, psychiatric medication, medication adjustment, adverse effect monitor, medical evaluation, medical treatment, social service assessment, social support meeting and placement assessment. The patients behavior, anxiety and compliance to treatment are improved and stabilized. At the time of discharge, the patient had no suicidal ideas, no homicidal ideas, no aggressive thoughts, no endangering behavior and no debilitating adverse effects. The DPOA/guardian and family agreed on the treatment plan, understood the risk, benefit, alternative treatment, potential consequence of no treatment, and gave informed consent. Disposition: DC-30 STILL A PATIENT Allergies/Adverse Reactions: Allergies No Known Allergies Allergy (Unverified 08/10/19 04:52) Vital Signs: Last Vital Signs Temp 97.5 F L 08/22/19 08:46 Pulse 79 08/22/19 08:46 Resp 20 08/22/19 08:46 BP 100/58 08/22/19 08:46 Pulse Ox 92 08/22/19 08:46 Last Lab: Laboratory Last Values WBC 5.4 K/mm3 (4.5-11.0) 08/11/19 13:17 RBC 4.31 M/mm3 (3.65-5.03) 08/11/19 13:17 Hgb 11.6 gm/dl (10.1-14.3) 08/11/19 13:17 Hct 36.8 % (30.3-42.9) 08/11/19 13:17 MCV 86 fl (79-97) 08/11/19 13:17 MCH 27 pg (28-32) L 08/11/19 13:17 MCHC 32 % (30-34) 08/11/19 13:17 RDW 15.4 % (13.2-15.2) H 08/11/19 13:17 Plt Count 222 K/mm3 (140-440) 08/11/19 13:17 Lymph % (Auto) 29.9 % (13.4-35.0) 08/11/19 13:17 [place] % (Auto) 7.6 % (0.0-7.3) H 08/11/19 13:17 Eos % (Auto) 2.8 % (0.0-4.3) 08/11/19 13:17 Baso % (Auto) 0.6 % (0.0-1.8) 08/11/19 13:17 Lymph # 1.6 K/mm3 (1.2-5.4) 08/11/19 13:17 [place] # 0.4 K/mm3 (0.0-0.8) 08/11/19 13:17 Eos # 0.2 K/mm3 (0.0-0.4) 08/11/19 13:17 Baso # 0.0 K/mm3 (0.0-0.1) 08/11/19 13:17 Seg Neutrophils % 59.1 % (40.0-70.0) 08/11/19 13:17 Seg Neutrophils # 3.2 K/mm3 (1.8-7.7) 08/11/19 13:17 Sodium 142 mmol/L (137-145) 08/22/19 05:44 Potassium 5.0 mmol/L (3.6-5.0) 08/22/19 05:44 Chloride 105.9 mmol/L (98-107) 08/22/19 05:44 Carbon Dioxide 23 mmol/L (22-30) 08/22/19 05:44 Anion Gap 18 mmol/L 08/22/19 05:44 BUN 55 mg/dL (7-17) H 08/22/19 05:44 Creatinine 1.7 mg/dL (0.7-1.2) H 08/22/19 05:44 Estimated GFR 35 ml/min 08/22/19 05:44 BUN/Creatinine Ratio 32 % 08/22/19 05:44 Glucose 81 mg/dL (65-100) 08/22/19 05:44 POC Glucose 87 (70-105) 08/10/19 13:54 Hemoglobin A1c 4.7 % (4-6) 08/11/19 13:17 Calcium 9.2 mg/dL (8.4-10.2) 08/22/19 05:44 Total Bilirubin 0.20 mg/dL (0.1-1.2) 08/11/19 13:17 AST 53 units/L (5-40) H 08/11/19 13:17 ALT 18 units/L (7-56) 08/11/19 13:17 Alkaline Phosphatase 102 units/L (35-129) 08/11/19 13:17 Total Protein 7.7 g/dL (6.3-8.2) 08/11/19 13:17 Albumin 4.2 g/dL (3.9-5) 08/11/19 13:17 Albumin/Globulin Ratio 1.2 % 08/11/19 13:17 Triglycerides 60 mg/dL (2-149) 08/11/19 13:17 Cholesterol 226 mg/dL (50-199) H 08/11/19 13:17 LDL Cholesterol Direct 135 mg/dL (50-130) H 08/11/19 13:17 HDL Cholesterol 88 mg/dL (40-59) H 08/11/19 13:17 Cholesterol/HDL Ratio 2.56 % 08/11/19 13:17 TSH 2.150 mlU/mL (0.270-4.200) 08/11/19 13:17 Coronavirus (PCR) Negative (Negative) 08/10/19 Unknown - Discharge Diagnoses (1) Dementia with behavioral disturbance Status: Acute Core Measure Documentation - Palliative Care Palliative Care/ Comfort Measures: Not Applicable - Core Measures Any of the following diagnoses?: none Exam - Constitutional Vitals: Temp Pulse Resp BP Pulse Ox 97.5 F L 79 20 100/58 92 08/22/19 08:46 08/22/19 08:46 08/22/19 08:46 08/22/19 08:46 08/22/19 08:46 - EENT Eyes: Present: PERRL, EOM intact ENT: hearing intact, clear oral mucosa - Neck Neck: Present: supple, normal ROM - Respiratory Respiratory effort: normal - Abdominal Female genitourinary: Present: normal - Integumentary Integumentary: Present: clear, warm, dry Plan Plan of Treatment: The patient should be compliant with medications, not to use drugs and not to drink alcohol. If suicidal ideas, homicidal ideas, or any endangering thoughts/behavior arise, they should immediately seek for emergent assistance including but not limited to crisis hot line and emergency room. Follow up with outpatient Psychiatrist and PCP within 7 - 14 days of discharge. Follow up with: PRIMARY CARE,MD [Primary Care Provider] - 7 Days Prescriptions: traZODone [Desyrel] 50 mg PO QHS #30 tablet busPIRone [Buspar] 5 mg PO BID #60 tablet [place]-3 Fatty Acids/Fish Oil [Fish Oil] 2,000 mg PO BID #60 capsule risperiDONE [RisperDAL] 1 mg PO BID #60 tablet
== END 2019-08-22 13:25 | disposition home or self-care (01) | DRG 884 ==
LOC: UNDOADMIN 10:51 → 3A 10:51 → 5A 11:08
PROVIDERS: ADMIT Psychiatry & Neurology Psychiatry; ATTEND Psychiatry & Neurology Psychiatry
DX: F03.91 Unspecified dementia, unspecified severity, with behavioral disturbance (principal); N17.9 Acute kidney failure, unspecified; Z82.49 Family history of ischemic heart disease and other diseases of the circulatory system; E78.5 Hyperlipidemia, unspecified; I25.10 Atherosclerotic heart disease of native coronary artery without angina pectoris; E78.2 Mixed hyperlipidemia
CPT/HCPCS: 36415; 80048; 80053; 80061; 80076; 80307; 80320; 81001; 82962; 83036; 84443; 85025; 96372; G0378; G0480; J1630; J1650; J3486; U0003